=== PATIENT | female | born 1940 | race Caucasian/White ===

== ENCOUNTER 2020-09-18 10:49 | Outpatient (REF) | payer MEDICARE, SELFPAY ==
[2020-09-18 10:55] LABS: MANUAL DIFF FLAG NO
[2020-09-18 11:33] LABS: Basophils Percent Auto 0.6 % (0-2); Eosinophils Absolute Auto 0.1 X10*3/uL (0.0-0.4); Eosinophils Percent Auto 1.7 % (0-4); Hematocrit 45.5 % (37-47); Hemoglobin 14.5 g/dl (12.0-16.0); Imm Gran Abs Auto 0.01 X10*3/uL (0.00-0.03); Imm Gran Pct Auto 0.2 % (0.0-0.4); Lymphocytes Absolute Auto 2.3 X10*3/uL (1.2-4.9); Lymphocytes Percent Auto 35.2 % (20-40); Mean Corpuscular HGB Conc 31.9 g/dl (31.0-35.0); Mean Corpuscular Volume 97.4 fL (80-98); Mean Platelet Volume 11.4 fL (9.4-12.3); Monocytes Absolute Auto 0.7 X10*3/uL (0.1-1.2); Monocytes Percent Auto 10.8 % (2-11); Neutrophils Absolute Auto 3.4 X10*3/uL (2.0-8.3); Neutrophils Percent Auto 51.5 % (45-73); Platelet Count 158 X10*3/uL (160-400); Red Blood Count 4.67 X10*6/uL (4.20-5.50); Red Cell Distribution Width 13.2 % (11.0-16.0); White Blood Count 6.5 X10*3/uL (4.8-10.8)
[2020-09-18 12:10] LABS: Alanine Aminotransferase 18 U/L (0-31); Albumin Level 4.2 g/dL (3.5-5.0); Alkaline Phosphatase 59 U/L (39-117); Anion Gap 14 (12-20); Aspartate Amino Transferase 24 U/L (5-31); Bilirubin Total 0.6 mg/dL (0.0-1.0); Blood Urea Nitrogen 18 mg/dL (9-16); Calcium 9.7 mg/dL (8.4-10.2); Carbon Dioxide 26 mmol/L (22-29); Chloride 105 mmol/L (96-108); Cholesterol 183 mg/dL; Estimated Glomerular Filt Rate > 60; Glucose Fasting 92 mg/dL (60-99); HDL Cholesterol 67 mg/dL; LDL Cholesterol Calculated 85 mg/dl; Potassium 4.5 mmol/L (3.3-5.1); Sodium 140 mmol/L (135-145); Total Protein 6.9 g/dL (6.5-8.0); Triglycerides 155 mg/dL
[2020-09-18 12:36] LABS: TSH reflex Free T4 3.33 uIU/mL (0.32-4.0)
== END 2020-09-18 10:50 | disposition home or self-care (01) ==
LOC: HO.LNP 10:49
PROVIDERS: PCP Internal Medicine; Visit Provider Internal Medicine
DX: Z00.00 Encounter for general adult medical examination without abnormal findings (principal); I10 Essential (primary) hypertension; E21.3 Hyperparathyroidism, unspecified; M85.80 Other specified disorders of bone density and structure, unspecified site
CPT/HCPCS: 80053; 80061; 84443; 85025

== ENCOUNTER 2020-09-26 14:04 | Outpatient (REF) | payer MEDICARE, SELFPAY ==
[2020-09-26 14:29] LABS: Glucose Urine UA NEG (NEG); Leukocyte Esterase Urine 1+ (NEG); Nitrite Urine NEG (NEG); Specific Gravity - Urine 1.025 (1.005-1.025); Urine Blood NEG (NEG); Urine Ketones NEG (NEG); Urine Protein NEG (NEG-TRACE)
[2020-09-26 14:30] LABS: Appearance Urine HAZY; Color Urine YELLOW
[2020-09-26 14:48] LABS: Bacteria Urine 2+ /LPF; RBC Urine 0-2 /HPF (0); Squamous Epithelial Cell Urine 3+ /LPF
== END 2020-09-26 14:05 | disposition home or self-care (01) ==
LOC: HO.LNP 14:04
PROVIDERS: Visit Provider Internal Medicine
DX: Z00.00 Encounter for general adult medical examination without abnormal findings (principal); I10 Essential (primary) hypertension
CPT/HCPCS: 81001

== ENCOUNTER 2021-01-09 09:11 | Day surgery (SDC) | payer MEDICARE, SELFPAY ==
[2021-01-02 15:05] VITALS: BMI 19.1
[2021-01-09 09:49] VITALS: BP 158/76; PULSE 76; RESP 20; TEMP 36.5; O2SAT 99
[2021-01-09] MEDS: Lactated Ringers 1,000 ML 100 ML IVCONT (09:59)
--- NOTE | 2021-01-09 10:16 | P.CONAN_ITS ---
HPI - Anesthesia Eval Consult details Narrative: surveillance Colonoscopy [facility] Past Medical History Medical History Hx of breast cancer Mitral valve prolapse Cognitive capacity: AAO X3 Functional capacity: independent ambulation Family History Family history of problems with anesthesia: No Surgical History Surgical History H/O colonoscopy History of lumpectomy of left breast History of Problems with Anesthesia: No Social History Social History Patient Tobacco Use Status: Tobacco use Unknown Use of substances other than those prescribed or required for medical reasons: No Advance Directives Information Provided: No Travel History History of recent travel: No Meds Allergies Allergy/AdvReac Type Severity Reaction Status Date / Time amoxicillin [AMOXICILLIN] Allergy Unknown UNKNOWN Verified 01/09/21 09:37 Active Medications: Current Medications Generic Name Dose Route Start Last Admin Trade Name Freq PRN Reason Stop Dose Admin Lactated Ringer's 1,000 mls @ 100 mls/hr 01/09/21 07:30 01/09/21 09:59 Lr IVCONT 100 mls/hr .Q10H HUSSEIN Administration Sodium Chloride 1,000 mls @ 50 mls/hr 01/09/21 07:30 Ns IVCONT .Q20H HUSSEIN Home Medications Medication Instructions Recorded Confirmed Last Taken Type atenolol 50 mg tablet 1 tab PO DAILY 01/02/21 01/02/21 01/09/21 04:00 History calcium carbonate 500 mg calcium 500 mg PO QID 01/02/21 01/02/21 Unknown History (1,250 mg) chewable tablet cholecalciferol (vitamin D3) 50 50 mcg PO DAILY 01/02/21 01/02/21 Unknown History mcg (2,000 unit) capsule (Vitamin D3) multivitamin 1 tab PO DAILY 01/02/21 01/02/21 Unknown History Exam Exam Date and Time: January 09, 2021 1016 Height,Weight and Vital Signs: Height 5 ft Weight 44.452 kg Last Vital Signs Temp 97.7 F 01/09/21 09:49 Pulse 76 01/09/21 09:49 Resp 20 01/09/21 09:49 BP 158/76 H 01/09/21 09:49 Pulse Ox 99 01/09/21 09:49 Narrative Narrative: no loose teeth Assessment and Plan Assessment Anesthesia Assessment: Anesthesia Plan Discussed and Chart Reviewed Final Anesthetic Review Family History of Problems with Anesthesia: No History of Problems with Anesthesia: No NPO: Yes ASA Class: III Final Preanesthetic Review: No Changes in Pt Med Stat, Meds/Allgs Chart Reviewed, Consent Obtained/Reviewed and Anes Risks/Benef Reviewed Patient Risk: Intermediate Procedure Risk: Low Assessment/Block/Sedation in SS: Assess/Block/Sedation-SS Anesthetic Plan Anesthetic Plan: MAC: and Agree w/ Assess. and Plan Disposition: Standard PACU
--- NOTE | 2021-01-09 10:22 | MHC.SHP ---
Pre-Procedural Eval Section A Date of Service: 01/09/21 The patient is an INPATIENT: No Changes since office visit: No Cold of Flu in the past 2 weeks, No New Medical Problems, No Changes in Medication and No Patient answered all questions The History & Physical has been completed within 30 days and I have reviewed it.: Yes Section B Chief Complaint: Screening Allergies: Allergies Allergy/AdvReac Type Severity Reaction Status Date / Time amoxicillin [AMOXICILLIN] Allergy Unknown UNKNOWN Verified 01/09/21 09:37 Plan I have reviewed the history and physical and performed a pertinent physical examination on my patient. No changes have occurred unless specified.
--- NOTE | 2021-01-09 10:55 | P.BOP_ITS ---
Brief Operative Note Date of Service: 01/09/21 Pre-op diagnosis: screening, hx polyp Post-op diagnosis: same (colon polyps) Procedure: colonoscopy Surgeon: Gerard Bethea Anesthesia: MAC Was an Campaign Coordinator used for this Procedure?: No Estimated blood loss (mL): 5 Pathology: other (polyps) Condition: stable Disposition: PACU
[2021-01-09 10:56] VITALS: BP 85/53; PULSE 74; RESP 14; TEMP 36.2; O2SAT 97
[2021-01-09 11:11] VITALS: BP 92/57; PULSE 63; RESP 16; O2SAT 97
[2021-01-09 11:34] VITALS: BP 122/74; PULSE 67; RESP 17; TEMP 36.2; O2SAT 98
--- NOTE | 2021-01-09 16:00 | OP_ITS ---
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 PREOPERATIVE DIAGNOSIS: POSTOPERATIVE DIAGNOSIS: PROCEDURE PERFORMED: Colonoscopy to the terminal ileum with snare polypectomy. ESTIMATED BLOOD LOSS: COMPLICATIONS: ANESTHESIA: ASSISTANTS: SPECIMENS: MEDICATIONS: Monitored anesthesia care. DESCRIPTION OF PROCEDURE: History and physical performed. The risks and benefits of the procedure were explained to the patient. Informed consent was obtained. The patient was placed in left lateral decubitus position. A digital rectal exam was performed, which showed large external hemorrhoids. The Olympus pediatric video colonoscope was introduced into the rectum and advanced to the cecum without difficulty. The cecum was identified by transillumination, palpation, and identification of ileocecal valve. Examination was performed and the scope was removed. She tolerated the procedure well and was taken to recovery area in stable condition. FINDINGS: The terminal ileum was normal. In the cecum, there was a 2.5 cm polypoid area consistent with recurrence at her previous polypectomy site. This was piecemeal resected and the base was cauterized. A single polyp at 55 cm measuring approximately 6 mm was removed with a snare. No other polyps were identified. Retroflexed examination showed internal hemorrhoids. IMPRESSION: Colon polyps. RECOMMENDATION: Follow up the biopsy results. MD SAVITA Joe/DONALD / [id number] MTDD
== END 2021-01-09 12:02 | disposition home or self-care (01) ==
PROVIDERS: PCP Internal Medicine; Visit Provider Internal Medicine Gastroenterology
PROC: 0DJD8ZZ Inspection of Lower Intestinal Tract, Via Natural or Artificial Opening Endoscopic (ICD-10-PCS; CPT 45378; principal; 2021-01-09 10:20)
DX: Z12.11 Encounter for screening for malignant neoplasm of colon (principal); Z86.010 Personal history of colon polyps; D12.0 Benign neoplasm of cecum; D12.5 Benign neoplasm of sigmoid colon; K64.8 Other hemorrhoids; K64.4 Residual hemorrhoidal skin tags; Z79.899 Other long term (current) drug therapy; Z88.0 Allergy status to penicillin; Z85.3 Personal history of malignant neoplasm of breast
CPT/HCPCS: 45385; 45380; 88305

== ENCOUNTER 2021-06-27 12:36 | Emergency (ER) | payer MEDICARE, SELFPAY ==
--- NOTE | ~2021-06-27 | CT_ITS ---
EXAMINATION: CT HEAD WITHOUT CONTRAST CLINICAL INFORMATION: Fall. Head trauma. COMPARISON: Previous head CT September 2017 TECHNIQUE: Contiguous axial imaging was performed from the skull base to vertex without intravenous administration of contrast. This CT examination was performed using dose optimization techniques as appropriate, variously including the following: *Automated exposure control *Adjustment of mA and/or kV according to patient size (this includes techniques or standardized protocols for targeted exams where dose is matched to indication/reason for exam; i.e. extremities or head) *Use of iterative reconstruction technique DLP: 642 mGy-cm FINDINGS: There is no evidence of acute intracranial hemorrhage or territorial infarction. No abnormal mass effect or midline shift is seen. Choudhary to white matter differentiation is well preserved. No extra-axial fluid collections are identified. The ventricles are normal in size. There is no abnormal attenuation within the brain parenchyma. The osseous structures and soft tissues are normal. The mastoid air cells and visualized portions of the paranasal sinuses are well aerated. CT/CT head/brain wo con IMPRESSION: Unremarkable exam.
[2021-06-27 14:05] VITALS: BP 176/99; PULSE 81; RESP 19; TEMP 36.6; O2SAT 99; BMI 20.5
[2021-06-27 16:54] VITALS: BP 147/78; PULSE 81; RESP 16; TEMP 36.6; O2SAT 98
--- NOTE | 2021-06-27 17:17 | ED.HEATRA ---
HPI - Head Injury General Chief complaint: Head Injury Stated complaint: Fall/head inj Time Seen by Provider: 06/27/21 16:48 Source: patient Mode of arrival: ambulatory Limitations: no limitations History of Present Illness HPI Narrative: 81-year-old female with history of hypertension here with reports of fall with head strike. Patient tells me she was changing her pants when she lost her balance falling backwards hitting her head on the corner of the bathtub. She denies any loss of consciousness. She denies any headache, vision changes, nausea, vomiting, dizziness, gait changes. She does take 81 mg of aspirin daily. Tetanus up-to-date Related Data Home Medications Medication Instructions Recorded Confirmed atenolol 50 mg tablet 1 tab PO DAILY 01/02/21 01/02/21 calcium carbonate 500 mg calcium 500 mg PO QID 01/02/21 01/02/21 (1,250 mg) chewable tablet cholecalciferol (vitamin D3) 50 50 mcg PO DAILY 01/02/21 01/02/21 mcg (2,000 unit) capsule (Vitamin D3) multivitamin 1 tab PO DAILY 01/02/21 01/02/21 Allergies Allergy/AdvReac Type Severity Reaction Status Date / Time amoxicillin [AMOXICILLIN] Allergy Unknown UNKNOWN Verified 01/09/21 09:37 Review of Systems Review of Systems: Yes all other systems are reviewed and are negative Constitutional: Constitutional: Reports no additional constitutional complaints, Denies body ache(s), Denies chills, Denies fever(s), Denies headache(s) and Denies weakness Eyes: Eyes: Reports no additional eye complaints and Denies change in vision ENT: Reports system reviewed and no additional complaints, except as documented, Denies dizziness, Denies headache(s), Denies nasal congestion, Denies nasal discharge and Denies neck pain Cardiovascular: Cardiovascular: Reports no additional cardiovascular complaints, Denies chest pain, Denies leg edema and Denies dyspnea Respiratory: Respiratory: Reports no additional respiratory complaints, Denies cough and Denies dyspnea Gastrointestinal: Gastrointestinal: Reports no additional gastrointestinal complaints, Denies abdominal pain, Denies diarrhea, Denies nausea and Denies vomiting Genitourinary: Genitourinary: Reports no additional female genitourinary complaints and Denies urinary incontinence Musculoskeletal: Musculoskeletal: Reports no additional musculoskeletal complaints, Denies back pain, Denies arthralgias, Denies joint swelling, Denies neck pain, Denies numbness and Denies tingling Integumentary/Breasts: Skin/Breast: Reports system reviewed and no additional complaints, except as docu and Denies rash Comments: +laceration Neurologic: Reports system reviewed and no additional complaints, except as documented, Denies Abnormal speech present, Denies dizziness, Denies headache(s), Denies numbness, Denies tingling and Denies weakness PMFSH Past Medical History Attestation statement: The following information was validated with the patient. Source: old records reviewed and nursing notes reviewed Medical History Hx of breast cancer Mitral valve prolapse Surgical History H/O colonoscopy History of lumpectomy of left breast Social History Social History Patient Tobacco Use Status: Tobacco use Unknown Advance Directives: No Advance Directives Information Provided: No Physical Exam Vital Signs: Vital Signs: Last Vital Signs Temp 97.8 F 06/27/21 16:54 Pulse 81 06/27/21 16:54 Resp 16 06/27/21 16:54 BP 147/78 H 06/27/21 16:54 Pulse Ox 98 06/27/21 16:54 BMI result Body Mass Index 20.5 Const: General: cooperative, healthy appearing, comfortable and no acute distress Orientation/consciousness: patient oriented x3 Limitations: no limitations HENMT: Head: Yes normal to inspection Head images: 1. 4cm laceration. No associated bogginess, crepitus or tenderness. Bleeding is controlled Ears: hearing grossly normal bilaterally and TM's normal bilaterally General nose exam: Normal external nose present Face and sinus: Yes normal facial exam Mouth: Normal oral and palatal mucosa present Throat: Yes posterior oropharynx normal, Yes tonsils normal and Yes uvula midline Eyes: General: appearance normal, both eyes and all related structures Pupils: Equal, round and reactive pupils present Neck: Neck: Yes normal visual inspection, Yes full ROM, Yes no lymphadenopathy and Yes no meningeal signs Chest: Chest palpation & inspection: normal inspection of the chest Resp: Effort & Inspection: normal respiratory effort Auscultation: clear to auscultation bilaterally Cardio: Rate: regular rate Rhythm: regular rhythm Peripheral pulses: Peripheral pulses 2+ throughout GI: Inspection: Yes normal to inspection Palpation (GI): Soft to palpation and nontender Auscultation: normal bowel sounds Back/Spine/Pelvis: Thoracic/Lumbar Spine: thoracic and lumbar spine normal to inspection Skin: General skin exam: no rashes or lesions noted Neuro: General: patient oriented x3, no meningeal signs, no focal motor deficits and normal sensation to monofilament Cranial nerves: Yes CN's II-XII intact bilaterally, Yes Equal, round and reactive pupils present, Yes Bilaterally intact EOM present, Yes Nystagmus not present, Yes Normal facial strength present and Yes Midline tongue present Cognition (Neuro): normal cognition Speech: No Abnormal speech present Gait exam (Neuro): Normal gait present Motor exam (neuro): 5/5 motor strength present throughout Sensory Exam: Normal double simultaneous stimulation for sensation Extrem: General: Yes normal to inspection Course Course Course Narrative: 81-year-old female here after a fall that was mechanical in nature with the head strike and laceration to the posterior head. No complaints other than laceration. Normal neurological exam. She is only on aspirin daily. Will check CT head and perform wound repair. 1715-CT head is negative for any intracranial abnormality. See procedure note for laceration repair. Reviewed worrisome signs and symptoms of when to return to the emergency department with the patient. Comfortable discharge home. MDM - Head Injury Medical Records Attestation: I reviewed the patient's medical records. Lab Data Attestation: I reviewed the patient's lab results. Imaging Data CT scan - head: Attestation: I personally reviewed and interpreted this imaging study as follows: Radiologist's impression: [address] [address] [address] Scan Report Signed Patient: Bonny Lim MR#: [id number] : 1940 Acct:[id number] Age/Sex: 81 / F ADM Date: 06/27/21 Loc: .ED Attending Dr: Ordering Physician: Judie Guadalupe Date of Service: 06/27/21 Procedure(s): CT head/brain wo con Accession Number(s): [id number] cc: Judie Guadalupe~ EXAMINATION: CT HEAD WITHOUT CONTRAST CLINICAL INFORMATION: Fall. Head trauma.? COMPARISON: Previous head CT September 2017 TECHNIQUE: Contiguous axial imaging was performed from the skull base to vertex without intravenous administration of contrast. This CT examination was performed using dose optimization techniques as appropriate, variously including the following: *Automated exposure control *Adjustment of mA and/or kV according to patient size (this includes techniques or standardized protocols for targeted exams where dose is matched to indication/reason for exam; i.e. extremities or head) *Use of iterative reconstruction technique DLP: 642 mGy-cm FINDINGS: There is no evidence of acute intracranial hemorrhage or territorial infarction. No abnormal mass effect or midline shift is seen. Choudhary to white matter differentiation is well preserved. No extra-axial fluid collections are identified. The ventricles are normal in size. There is no abnormal attenuation within the brain parenchyma. The osseous structures and soft tissues are normal. The mastoid air cells and visualized portions of the paranasal sinuses are well aerated. ? CT/CT head/brain wo con IMPRESSION: Unremarkable exam. Procedures Laceration Laceration 1: Site: scalp Side (If applicable): right Size (cm): 4 Description: linear Depth: simple, single layer Pre-repair: wound explored and irrigated extensively Skin layer closed with: other (Norris) Number of sutures: 4 Discharge Plan Discharge Clinical Impression: Closed head injury, Laceration of head Patient Disposition: Home, Self-Care Instructions: Head Injury (ED), Head Laceration (ED) Additional Instructions: You have for norris. These need to be removed in 10-14 days Wash hair normally Return for change in behavior, headache, vomiting Prescriptions: No Action multivitamin Tablet 1 tab PO DAILY RF: 0 calcium carbonate 500 mg calcium (1,250 mg) Tablet,Chewable 500 mg PO QID RF: 0 atenolol 50 mg tablet 1 tab PO DAILY RF: 0 cholecalciferol (vitamin D3) [Vitamin D3] 50 mcg (2,000 unit) Capsule 50 mcg PO DAILY RF: 0 Referrals: Clive Hyatt MD [Primary Care Provider] - 2 days Interventions: ED Discharge Assessment Last Done: 06/27/21 17:19
== END 2021-06-27 17:20 | disposition home or self-care (01) ==
LOC: HO.ED 17:06
PROVIDERS: Emergency Provider Emergency Medicine Emergency Medical Services; PCP Internal Medicine
DX: S01.01XA Laceration without foreign body of scalp, initial encounter (principal); G44.309 Post-traumatic headache, unspecified, not intractable; W01.10XA Fall on same level from slipping, tripping and stumbling with subsequent striking against unspecified object, initial encounter; Y93.9 Activity, unspecified; Y92.9 Unspecified place or not applicable; Y99.9 Unspecified external cause status; Z79.899 Other long term (current) drug therapy
CPT/HCPCS: 12002; 70450; 99284

== ENCOUNTER 2021-09-07 06:24 | Day surgery (SDC) | payer MEDICARE, SELFPAY ==
[2021-08-31 15:58] VITALS: BMI 19.7
--- NOTE | 2021-09-06 09:48 | HO.ANESPROP2 ---
Documented by User: Marla Brody NP 09/06/21 09:48 HPI - Anesthesia Eval Consult details Narrative: 81yo F for Colonoscopy s/p colo 01/2021 with [facility] PMFSH Past Medical History Medical History Hx of breast cancer Mitral valve prolapse Family History Family history of problems with anesthesia: No Surgical History Surgical History H/O colonoscopy History of lumpectomy of left breast History of Problems with Anesthesia: No Social History Social History Patient Tobacco Use Status: Never used Tobacco Second Hand Smoke Exposure: No Use of substances other than those prescribed or required for medical reasons: No Are you DNR?: No Advance Directives: No Advance Directives Information Provided: Yes Advance Directives on File: No Meds Allergies Allergy/AdvReac Type Severity Reaction Status Date / Time amoxicillin [AMOXICILLIN] Allergy Unknown UNKNOWN Verified 01/09/21 09:37 Home Medications Medication Instructions Recorded Confirmed Last Taken Type atenolol 50 mg tablet 1 tab PO DAILY 01/02/21 01/02/21 09/07/21 History calcium carbonate 500 mg calcium 500 mg PO QID 01/02/21 01/02/21 Unknown History (1,250 mg) chewable tablet cholecalciferol (vitamin D3) 50 50 mcg PO DAILY 01/02/21 01/02/21 Unknown History mcg (2,000 unit) capsule (Vitamin D3) multivitamin 1 tab PO DAILY 01/02/21 01/02/21 Unknown History Exam Exam Date and Time: September 06, 2021 0948 Height,Weight and Vital Signs: Height 5 ft Weight 45.813 kg Assessment and Plan Assessment Anesthesia Assessment: Chart Reviewed Final Anesthetic Review Family History of Problems with Anesthesia: No History of Problems with Anesthesia: No Documented by User: Shefali Ron MD 09/07/21 07:12 PMF Past Medical History Medical History Hx of breast cancer Mitral valve prolapse Functional capacity: independent ambulation Patient : No Surgical History Surgical History H/O colonoscopy History of lumpectomy of left breast Social History Social History Patient Tobacco Use Status: Never used Tobacco Second Hand Smoke Exposure: No Use of substances other than those prescribed or required for medical reasons: No Are you DNR?: No Advance Directives: No Advance Directives Information Provided: Yes Advance Directives on File: No Meds Allergies Allergy/AdvReac Type Severity Reaction Status Date / Time amoxicillin [AMOXICILLIN] Allergy Unknown UNKNOWN Verified 01/09/21 09:37 Home Medications Medication Instructions Recorded Confirmed Last Taken Type atenolol 50 mg tablet 1 tab PO DAILY 01/02/21 01/02/21 09/07/21 History calcium carbonate 500 mg calcium 500 mg PO QID 01/02/21 01/02/21 Unknown History (1,250 mg) chewable tablet cholecalciferol (vitamin D3) 50 50 mcg PO DAILY 01/02/21 01/02/21 Unknown History mcg (2,000 unit) capsule (Vitamin D3) multivitamin 1 tab PO DAILY 01/02/21 01/02/21 Unknown History Exam Airway Mallampati Class: II TM Dist: >3cm Neck ROM: Full Heart: RRR Lungs: CTA Assessment and Plan Final Anesthetic Review NPO: Yes ASA Class: II Final Preanesthetic Review: No Changes in Pt Med Stat, Meds/Allgs Chart Reviewed, Consent Obtained/Reviewed and Anes Risks/Benef Reviewed Patient Risk: Low Procedure Risk: Low Anesthetic Plan Anesthetic Plan: MAC: Disposition: Standard PACU
[2021-09-07 06:53] VITALS: BP 130/72; PULSE 75; RESP 16; TEMP 36.5; O2SAT 99
[2021-09-07] MEDS: Lactated Ringers 1,000 ML 100 ML IVCONT (07:01)
--- NOTE | 2021-09-07 07:27 | P.HPSUR_ITS ---
Pre-Procedural Eval Section A Date of Service: 09/07/21 Section B Chief Complaint: benign neoplasm of colon Details of Present Illness: see h&p no changes Relevant Family History (Specify if Yes): No Relevant Social History: None Present Medications: see Short Stay Collaborative assessment Medical History: No relevant PMH History of Previous Operations: No relevant previous surgery Allergies: Allergies Allergy/AdvReac Type Severity Reaction Status Date / Time amoxicillin [AMOXICILLIN] Allergy Unknown UNKNOWN Verified 01/09/21 09:37 Review of Systems Sugical H&P ROS: Negative: Constitution, Cardiovascular, Respiratory, Neurologi mary, Psychiatric, Hem-Onc, Allergic/Immunologic, Gastrointestinal, Genitourinary, Musculoskeletal, Integumentary, Endocrine and Eyes/Ears/Nose/Throat Exam Surgical H&P Exam: Normal: HEENT, Normal: Heart, Normal: Lungs, Normal: Extremities, Normal: Abdomen, Normal: Skin and Normal: Neurological Plan Diagnosis/Plan: Unchanged I have reviewed the history and physical and performed a pertinent physical examination on my patient. No changes have occurred unless specified.
--- NOTE | 2021-09-07 08:10 | PM.OP ---
Brief Operative Note Date of Service: 09/07/21 Pre-op diagnosis: colon polyp Post-op diagnosis: same Procedure: colonoscopy Surgeon: Gerard Bethea Anesthesia: MAC Was an Strategic Marketing Specialist used for this Procedure?: No Estimated blood loss (mL): 2 Pathology: other (polyps x3) Condition: stable Disposition: PACU
[2021-09-07 08:11] VITALS: BP 84/48; PULSE 65; RESP 20; TEMP 36.3; O2SAT 100
[2021-09-07 08:15] VITALS: BP 84/48; PULSE 61; RESP 20; O2SAT 100
[2021-09-07 08:25] VITALS: BP 94/54; PULSE 55; RESP 20; O2SAT 100
[2021-09-07 08:40] VITALS: BP 105/63; PULSE 68; RESP 20; O2SAT 100
[2021-09-07 08:53] VITALS: BP 131/69; PULSE 66; RESP 16; TEMP 36.3; O2SAT 100
--- NOTE | 2021-09-07 10:30 | HO.POSTANES ---
Post Anesthesia Evaluation Post Anesthesia Evaluation Vital Signs: Vital Signs Temp Pulse Resp BP Pulse Ox 09/07/21 08:53 97.4 F 66 16 131/69 100 09/07/21 08:40 68 20 105/63 100 09/07/21 08:25 55 20 94/54 L 100 09/07/21 08:15 61 20 84/48 L 100 09/07/21 08:11 97.4 F 65 20 84/48 L 100 09/07/21 06:53 97.7 F 75 16 130/72 99 Mental Status: Awake Pain Control: Satisfactory Nausea/Vomiting: None Hydration: Adequate Anesthesia-Related Issues: No Anes. Related Issues Comments: Pt. was c/o pain at the neck. She needed jaw lift because of obstruction / secundary to her severe sleep apnea/ .
--- NOTE | 2021-09-07 11:58 | OP_ITS ---
SURGEON: Gerard Bethea MD INDICATIONS: History of a large recurrent cecal adenoma. PREOPERATIVE DIAGNOSIS: POSTOPERATIVE DIAGNOSIS: PROCEDURE PERFORMED: Colonoscopy to the terminal ileum with biopsy and snare polypectomy. ESTIMATED BLOOD LOSS: COMPLICATIONS: ANESTHESIA: ASSISTANTS: SPECIMENS: MEDICATIONS: Monitored anesthesia care. DESCRIPTION OF PROCEDURE: History and physical were performed. The risks and benefits of the procedure were explained to the patient. Informed consent was obtained. The patient was placed in left lateral decubitus position. A digital rectal exam was performed and was found to be normal. The Olympus pediatric video colonoscope was introduced into the rectum and advanced to the cecum without difficulty. The cecum was identified by transillumination, palpation, and identification of ileocecal valve. Examination was performed. The scope was removed. She tolerated the procedure well and was taken to recovery area in stable condition. FINDINGS: The terminal ileum was examined and appeared normal. The visualized colonic mucosa was normal. The quality of the prep was excellent. The cecum was carefully examined and there was no evidence of recurrent adenoma, but at the site of the prior polypectomy, there was some scar tissue identified. A total of 3 polyps were removed. The 1st was located at 65 cm measuring less than 5 mm and was removed with biopsy forceps. The 2nd was located at 50 cm and was removed with a snare. The 3rd was located at 40 cm measuring approximately 6 mm was removed with a snare. No other polyps were identified. Retroflexed examination showed large internal hemorrhoids. IMPRESSION: Colon polyps. RECOMMENDATION: Follow up the biopsy results. MD SAVITA Joe/BRIANL / [id number]
== END 2021-09-07 09:25 | disposition home or self-care (01) ==
PROVIDERS: PCP Internal Medicine; Visit Provider Internal Medicine Gastroenterology
PROC: 0DJD8ZZ Inspection of Lower Intestinal Tract, Via Natural or Artificial Opening Endoscopic (ICD-10-PCS; CPT 45378; principal; 2021-09-07 07:30)
DX: D12.6 Benign neoplasm of colon, unspecified (principal); K63.5 Polyp of colon; Z86.010 Personal history of colon polyps
CPT/HCPCS: 45385; 45380; 88305

== ENCOUNTER 2021-09-25 10:36 | Outpatient (REF) | payer MEDICARE, SELFPAY ==
[2021-09-25 10:40] LABS: MANUAL DIFF FLAG NO
[2021-09-25 10:44] LABS: Basophils Percent Auto 0.5 % (0-2); Eosinophils Absolute Auto 0.1 X10*3/uL (0.0-0.4); Eosinophils Percent Auto 0.9 % (0-4); Hematocrit 45.8 % (37.0-47.0); Hemoglobin 14.7 g/dl (12.0-16.0); Imm Gran Abs Auto 0.02 X10*3/uL (0.00-0.03); Imm Gran Pct Auto 0.4 % (0.0-0.4); Lymphocytes Absolute Auto 1.3 X10*3/uL (1.2-4.9); Lymphocytes Percent Auto 22.7 % (20-40); Mean Corpuscular HGB Conc 32.1 g/dl (31.0-35.0); Mean Corpuscular Hemoglobin 31.2 pg (27.0-33.0); Mean Corpuscular Volume 97.2 fL (80.0-98.0); Mean Platelet Volume 11.4 fL (9.4-12.3); Monocytes Absolute Auto 0.9 X10*3/uL (0.1-1.2); Monocytes Percent Auto 16.1 % (2-11); Neutrophils Absolute Auto 3.4 x10*3/uL (2.0-8.3); Neutrophils Percent Auto 59.4 % (45-73); Platelet Count 193 X10*3/uL (160-400); Red Blood Count 4.71 X10*6/uL (4.20-5.50); Red Cell Distribution Width 12.8 % (11.0-16.0); White Blood Count 5.6 X10*3/uL (4.8-10.8)
[2021-09-25 10:54] LABS: Alanine Aminotransferase 17 U/L (0-31); Albumin Level 3.9 g/dL (3.5-5.0); Alkaline Phosphatase 68 U/L (39-117); Anion Gap 12 (12-20); Aspartate Amino Transferase 22 U/L (5-31); Bilirubin Total 0.6 mg/dL (0.0-1.0); Blood Urea Nitrogen 17 mg/dL (9-16); Calcium 9.8 mg/dL (8.4-10.2); Carbon Dioxide 26 mmol/L (22-29); Chloride 108 mmol/L (96-108); Cholesterol 170 mg/dL; Estimated Glomerular Filt Rate > 60; Glucose Fasting 95 mg/dL (60-99); HDL Cholesterol 58 mg/dL; LDL Cholesterol Calculated 91 mg/dl; Potassium 4.3 mmol/L (3.3-5.1); Sodium 142 mmol/L (135-145); Total Protein 6.6 g/dL (6.5-8.0); Triglycerides 107 mg/dL
[2021-09-25 11:15] LABS: TSH reflex Free T4 2.47 uIU/mL (0.32-4.0)
== END 2021-09-25 10:37 | disposition home or self-care (01) ==
LOC: HO.LNP 10:36
PROVIDERS: PCP Internal Medicine; Visit Provider Internal Medicine
DX: Z00.00 Encounter for general adult medical examination without abnormal findings (principal); E21.3 Hyperparathyroidism, unspecified; I10 Essential (primary) hypertension
CPT/HCPCS: 80053; 80061; 84443; 85025

== ENCOUNTER 2021-10-02 10:30 | Outpatient (REF) | payer MEDICARE, SELFPAY ==
[2021-10-02 11:58] LABS: Appearance Urine CLEAR; Color Urine YELLOW; Glucose Urine UA NEG (NEG); Leukocyte Esterase Urine 1+ (NEG); Nitrite Urine NEG (NEG); Urine Blood NEG (NEG); Urine Ketones NEG (NEG); Urine Protein NEG (NEG-TRACE)
[2021-10-02 13:28] LABS: Bacteria Urine 1+ /LPF; Squamous Epithelial Cell Urine TRACE /LPF
[2021-10-02 13:29] LABS: RBC Urine 0 /HPF (0); WBC Urine 0-2 /HPF (0-4)
== END 2021-10-02 10:31 | disposition home or self-care (01) ==
LOC: HO.LNP 10:30
PROVIDERS: Visit Provider Internal Medicine
DX: I10 Essential (primary) hypertension (principal)
CPT/HCPCS: 81001; 81003

== ENCOUNTER 2021-10-12 09:08 | Outpatient (REF) | payer MEDICARE, SELFPAY ==
--- NOTE | ~2021-10-12 | MM_ITS ---
EXAMINATION: BONE DENSITOMETRY CLINICAL INDICATION: Osteopenia. COMPARISON: Previous BD dated 04/06/2019 and baseline BD dated 04/11/2009. TECHNIQUE: Using a [employer] DXA System (software version: 13.1) manufactured by [employer], dual-energy x-ray absorptiometry was performed of the lumbar spine and left hip. The images are of good technical quality. Summary results are attached. FINDINGS: AP SPINE L1-L4 (excluding L3): The data of L1-L4 has been changed to exclude the L3 vertebral body, because degenerative sclerosis at this level may cause overestimation of lumbar spine density. Current: BMD 1.001 g/cm2, Z-score 1.1, T-score -1.4, osteopenia, 7.4% decrease from previous, 4.9% decrease from baseline (<5% change is not significant). Prior: BMD 1.081 g/cm2. Baseline: BMD 1.053 g/cm2. LEFT FEMUR, NECK: Current: BMD 0.784 g/cm2, Z-score 0.7, T-score -1.8, osteopenia. Prior: BMD 0.821 g/cm2. Baseline: BMD 0.871 g/cm2. LEFT FEMUR, TOTAL: Current: BMD 0.718 g/cm2, Z-score 0.1, T-score -2.3, osteopenia, 6.3% decrease from previous, 19.1% decrease from baseline (<5% change is not significant). Prior: BMD 0.766 g/cm2. Baseline: BMD 0.887 g/cm2. IDENTIFIED RISK FACTORS: Early menopause, secondary osteoporosis. HISTORY OF FRACTURE: None listed. MEDICATIONS: Calcium supplements or multivitamin, vitamin D. MM/XR DEXA axial skeleton IMPRESSION: 1. DIAGNOSIS: Osteopenia based on the lowest T-score value of -2.3 in the total femur applying World Health Organization criteria. 2. 10-YEAR FRACTURE RISK PREDICTION, FRAX: Major osteoporotic fracture (clinical spine, forearm, hip or shoulder) 12.7%. Hip fracture 3.7%. 3. Treatment Recommendations: NOF guidelines recommend consideration for treatment in postmenopausal women and men age 50 and older presenting with the following: -A hip or vertebral (clinical or morphometric) fracture. -T-score less than or equal to -2.5 at the femoral neck or spine after appropriate evaluation to exclude secondary causes. -Low bone mass at the hip or spine and a 10-year fracture probability by FRAX of greater than or equal to 3% for hip fracture or greater than or equal to 20% for major osteoporotic fracture based on the [place] adapted WHO algorithm. 4. Other Recommendations: All treatment decisions require clinical judgment and consideration of individual patient factors, including patient preferences, comorbidities, previous drug use, risk factors not captured in the FRAX model (e.g. frailty, falls, vitamin D deficiency, increased bone turnover, interval significant decline in bone density) and possible under or overestimation of fracture risk by FRAX. Additional medical evaluation for secondary cause of low bone mineral density may be appropriate. FUTURE SCAN RECOMMENDATION: People with diagnosed cases of osteoporosis or at high risk for fracture should have regular bone mineral density tests. For patients eligible for Medicare, routine testing is allowed once every 2 years. The testing frequency can be increased to one year for patients who have rapidly progressing disease, those who are receiving or discontinuing medical therapy to restore bone mass, or have additional risk factors.
== END 2021-10-12 09:09 | disposition home or self-care (01) ==
LOC: HO.MAMMO 09:08
PROVIDERS: PCP Internal Medicine; Visit Provider Internal Medicine
DX: Z13.820 Encounter for screening for osteoporosis (principal); M85.80 Other specified disorders of bone density and structure, unspecified site; Z78.0 Asymptomatic menopausal state
CPT/HCPCS: 77080

== ENCOUNTER → 2021-11-13 07:45 | Outpatient (BNVA) | payer MEDICARE, SELFPAY | PROVIDERS: PCP Internal Medicine; Visit Provider Obstetrics & Gynecology | DX: N81.4 Uterovaginal prolapse, unspecified (principal) | CPT/HCPCS: 99202 ==

== ENCOUNTER 2022-03-26 11:37 | Outpatient (REF) | payer MEDICARE, SELFPAY ==
[2022-03-26 11:39] LABS: MANUAL DIFF FLAG NO
[2022-03-26 12:05] LABS: Basophils Absolute Auto 0.1 X10*3/uL (0.0-0.2); Eosinophils Absolute Auto 0.1 X10*3/uL (0.0-0.4); Eosinophils Percent Auto 1.9 % (0-4); Hematocrit 43.5 % (37.0-47.0); Hemoglobin 14.3 g/dl (12.0-16.0); Imm Gran Abs Auto 0.02 X10*3/uL (0.00-0.03); Imm Gran Pct Auto 0.3 % (0.0-0.4); Lymphocytes Absolute Auto 1.9 X10*3/uL (1.2-4.9); Lymphocytes Percent Auto 30.3 % (20-40); Mean Corpuscular HGB Conc 32.9 g/dl (31.0-35.0); Mean Corpuscular Hemoglobin 31.4 pg (27.0-33.0); Mean Corpuscular Volume 95.4 fL (80.0-98.0); Mean Platelet Volume 11.4 fL (9.4-12.3); Monocytes Absolute Auto 0.7 X10*3/uL (0.1-1.2); Monocytes Percent Auto 10.8 % (2-11); Neutrophils Absolute Auto 3.5 x10*3/uL (2.0-8.3); Neutrophils Percent Auto 55.7 % (45-73); Platelet Count 208 X10*3/uL (160-400); Red Blood Count 4.56 X10*6/uL (4.20-5.50); White Blood Count 6.3 X10*3/uL (4.8-10.8)
== END 2022-03-26 11:38 | disposition home or self-care (01) ==
LOC: HO.LNP 11:37
PROVIDERS: Visit Provider Internal Medicine
DX: D72.821 Monocytosis (symptomatic) (principal)
CPT/HCPCS: 85025

== ENCOUNTER 2022-06-07 13:57 | Outpatient (REF) | payer MEDICARE, SELFPAY ==
--- NOTE | ~2022-06-07 | US_ITS ---
EXAMINATION: US VENOUS ULTRASOUND WITH DOPPLER LOWER EXTREMITY, BILATERAL CLINICAL INFORMATION: Superficial thrombophlebitis COMPARISON: None TECHNIQUE: Ultrasound of the deep veins is performed from the hip to the calf with compression sonography and color and pulse Doppler assessment. Spectral analysis with color-flow imaging is performed. FINDINGS: RIGHT: There is normal venous compression and respiratory variation and augmented flow. The visualized common femoral vein, superficial femoral vein, profunda femoral vein, popliteal vein, and the trifurcation region shows no evidence of deep venous thrombosis. There is no significant popliteal fossa cyst. LEFT: There is normal venous compression and respiratory variation and augmented flow. The visualized common femoral vein, superficial femoral vein, profunda femoral vein, popliteal vein, and the trifurcation region shows no evidence of deep venous thrombosis. There is no significant popliteal fossa cyst. US/US venous duplex LE BI IMPRESSION: No DVT demonstrated in the bilateral lower extremity.
== END 2022-06-07 13:58 | disposition home or self-care (01) ==
LOC: HO.US 13:57
PROVIDERS: PCP Internal Medicine; Visit Provider Internal Medicine
DX: I80.9 Phlebitis and thrombophlebitis of unspecified site (principal)
CPT/HCPCS: 93970

== ENCOUNTER 2022-09-26 10:38 | Outpatient (REF) | payer MEDICARE, SELFPAY ==
[2022-09-26 10:42] LABS: MANUAL DIFF FLAG NO
[2022-09-26 10:56] LABS: Basophils Absolute Auto 0.1 X10*3/uL (0.0-0.2); Basophils Percent Auto 0.9 % (0-2); Eosinophils Absolute Auto 0.1 X10*3/uL (0.0-0.4); Hematocrit 46.2 % (37.0-47.0); Hemoglobin 15.1 g/dl (12.0-16.0); Imm Gran Abs Auto 0.02 X10*3/uL (0.00-0.03); Imm Gran Pct Auto 0.4 % (0.0-0.4); Lymphocytes Absolute Auto 1.8 X10*3/uL (1.2-4.9); Lymphocytes Percent Auto 32.8 % (20-40); Mean Corpuscular HGB Conc 32.7 g/dl (31.0-35.0); Mean Corpuscular Hemoglobin 31.3 pg (27.0-33.0); Mean Corpuscular Volume 95.9 fL (80.0-98.0); Monocytes Absolute Auto 0.5 X10*3/uL (0.1-1.2); Monocytes Percent Auto 9.7 % (2-11); Neutrophils Percent Auto 54.2 % (45-73); Platelet Count 196 X10*3/uL (160-400); Red Blood Count 4.82 X10*6/uL (4.20-5.50); Red Cell Distribution Width 12.9 % (11.0-16.0); White Blood Count 5.5 X10*3/uL (4.8-10.8)
[2022-09-26 11:10] LABS: Alanine Aminotransferase 18 U/L (0-31); Albumin Level 4.1 g/dL (3.5-5.0); Alkaline Phosphatase 62 U/L (39-117); Anion Gap 15 (12-20); Aspartate Amino Transferase 21 U/L (5-31); Bilirubin Total 0.9 mg/dL (0.0-1.0); Blood Urea Nitrogen 14 mg/dL (9-16); Calcium 9.9 mg/dL (8.4-10.2); Carbon Dioxide 26 mmol/L (22-29); Chloride 107 mmol/L (96-108); Cholesterol 194 mg/dL; Estimated Glomerular Filt Rate > 60; Glucose Fasting 94 mg/dL (60-99); HDL Cholesterol 66 mg/dL; LDL Cholesterol Calculated 108 mg/dl; Potassium 4.6 mmol/L (3.3-5.1); Sodium 143 mmol/L (135-145); Total Protein 6.6 g/dL (6.5-8.0); Triglycerides 102 mg/dL
[2022-09-26 11:23] LABS: Appearance Urine Clear; Color Urine Yellow; Glucose Urine UA Negative (Negative); Leukocyte Esterase Urine Trace (Negative); Nitrite Urine Negative (Negative); Specific Gravity - Urine 1.015 (1.005-1.025); UMIC TRIGGER UACC YES; Urine Blood Negative (Negative); Urine Ketones Negative (Negative); Urine Protein Negative (Neg-Trace)
[2022-09-26 11:29] LABS: Bacteria Urine 4+ (None Seen); Hyaline Casts Urine 0-2 /LPF (0-2); RBC Urine 0-2 /HPF (0-2); Squamous Epithelial Cell Urine 0-2 /HPF (0-2); WBC Urine 0-5 /HPF (0-5)
== END 2022-09-26 10:39 | disposition home or self-care (01) ==
LOC: HO.LNP 10:38
PROVIDERS: Visit Provider Internal Medicine
DX: Z00.00 Encounter for general adult medical examination without abnormal findings (principal); E21.3 Hyperparathyroidism, unspecified; I10 Essential (primary) hypertension; D72.821 Monocytosis (symptomatic)
CPT/HCPCS: 80053; 80061; 81001; 85025

== ENCOUNTER 2022-12-13 18:23 | Emergency (ER) | payer MEDICARE, SELFPAY ==
--- NOTE | 2022-12-13 18:46 | ED_ITS ---
HPI - General Adult General Chief complaint: Fall Stated complaint: Fall Time Seen by Provider: 12/13/22 21:02 Source: patient and family () History of Present Illness HPI narrative: 82-year-old female who presents with her at the request of the urgent care that evaluated her earlier today and diagnosed her with a humeral fracture. She denies any numbness/tingling/weakness in the distal extremity, she denies any pain at this time. Related Data Home Medications Medication Instructions Recorded Confirmed atenolol 50 mg tablet 1 tab PO DAILY 01/02/21 01/02/21 calcium carbonate 500 mg calcium 500 mg PO QID 01/02/21 01/02/21 (1,250 mg) chewable tablet cholecalciferol (vitamin D3) 50 50 mcg PO DAILY 01/02/21 01/02/21 mcg (2,000 unit) capsule (Vitamin D3) multivitamin 1 tab PO DAILY 01/02/21 01/02/21 Allergies Allergy/AdvReac Type Severity Reaction Status Date / Time amoxicillin [AMOXICILLIN] Allergy Unknown UNKNOWN Verified 12/13/22 18:46 Review of Systems Review of Systems: Pertinent positives and negatives as stated in HPI [facility] Past Medical History Source: nursing notes reviewed Medical History Hx of breast cancer Mitral valve prolapse Surgical History H/O colonoscopy History of lumpectomy of left breast Social History Social History Patient Tobacco Use Status: Never used Tobacco Smoked in Last 30 Days: No Second Hand Smoke Exposure: No Use of substances other than those prescribed or required for medical reasons: No Advance Directives: No Advance Directives Information Provided: Yes Physical Exam ED Vital Signs: Vital Signs - 24 hr 12/13/22 18:47 12/13/22 21:06 12/13/22 21:09 Temperature 97.7 F 98.2 F 98.2 F Pulse Rate 75 72 72 Respiratory Rate 18 16 14 Blood Pressure 123/64 136/68 136/68 Pulse Oximetry 98 99 99 Oxygen Delivery Method Room Air Room Air BMI result Body Mass Index 21.5 VITAL SIGNS: Reviewed. GENERAL: Well developed, well nourished, in no acute distress. HEAD: Normocephalic/atraumatic EYES: PERRLA, EOMI EARS: Ext canals without abnormality NOSE: Nares patent bilateral OROPHARYNX: no oral lesions noted, posterior pharynx clear NECK: Supple, no adenopathy LUNGS: Normal breath sounds. No adventitious sounds or accessory muscle use. SpO2<99> CARDIOVASCULAR: Regular rate and rhythm without noted murmurs ABDOMEN: Soft, non-tender, non-distended with bowel sounds. MUSCULOSKELETAL: No tenderness, deformities, or effusions noted on gross inspection. EXTREMITIES: No cyanosis, clubbing or edema; RIGHT SHOULDER: There are no step- offs there is a mild area of swelling over the anterior aspect, no tenderness to palpation, full range of motion at the elbow and neurovascular is intact distal.. SKIN: Inspection of the skin reveals no rashes NEUROLOGIC: Alert and oriented x 4. Strength and sensation to light touch were grossly intact x 4. Course Course Course Narrative: This is an RME: Additional HPI, ROS, PE not included below will be deferred to primary provider. Patient is an 82 year old female with a history of cystocele and hypertension presents post fall with right sided arm pain. Patient is unclear on how she fell. Patient denies head trauma. Plan: imaging, labs Medical Decision Making Medical Decision Making MDM Narrative: 82-year-old female who presents after a fall earlier today in a previous evaluation at urgent care. The x-ray seems to be consistent with the discharge paperwork that was received by the patient at the urgent care. She is appropriately in a sling and will be encouraged to follow-up with orthopedics next week. I did review the lab work that was ordered and hematologic indices do not indicate any leukocytosis or left shift, neither does that suggest any anemia. Chemistry indices are grossly within normal limits. Right shoulder x-ray demonstrates fracture. Otherwise, patient is placed in a sling that fits her more appropriately and is discharged home in stable condition. Differential Diagnosis Please see the discussion above Lab Data Please see the discussion above 12/13/22 19:34 12/13/22 19:34 Labs: Lab Results 12/13/22 12/13/22 12/13/22 Range/Units 19:34 19:34 19:34 WBC 9.4 (4.8-10.8) X10*3/uL RBC 4.18 L (4.20-5.50) X10*6/uL Hgb 13.2 (12.0-16.0) g/dl Hct 40.0 (37.0-47.0) % MCV 95.7 (80.0-98.0) fL MCH 31.6 (27.0-33.0) pg MCHC 33.0 (31.0-35.0) g/dl RDW 12.9 (11.0-16.0) % Plt Count 175 (160-400) X10*3/uL MPV 10.2 (9.4-12.3) fL Immature Gran % (Auto) 0.4 (0.0-0.4) % Neut % (Auto) 59.1 (45-73) % Lymph % (Auto) 26.7 (20-40) % Villalba % (Auto) 12.7 H (2-11) % Eos % (Auto) 0.6 (0-4) % Baso % (Auto) 0.5 (0-2) % Lymph # (Auto) 2.5 (1.2-4.9) X10*3/uL Villalba # (Auto) 1.2 (0.1-1.2) X10*3/uL Eos # (Auto) 0.1 (0.0-0.4) X10*3/uL Baso # (Auto) 0.1 (0.0-0.2) X10*3/uL Abs Immat Gran (auto) 0.04 H (0.00-0.03) X10*3/uL Absolute Neuts (auto) 5.5 (2.0-8.3) x10*3/uL Absolute Nucleated RBC 0.000 (0.0-0.012) X10*3/uL Nucleated RBC % (auto) 0.0 (0.0-0.2) /100WBC Sodium 140 (135-145) mmol/L Potassium 3.8 (3.3-5.1) mmol/L Chloride 106 (96-108) mmol/L Carbon Dioxide 27 (22-29) mmol/L Anion Gap 11 L (12-20) BUN 19 H (9-16) mg/dL Creatinine 0.78 (0.5-1.4) mg/dL Estim Creat Clear Calc 41.3 Estimated GFR > 60 Random Glucose 95 (60-115) mg/dL Calcium 10.2 (8.4-10.2) mg/dL Magnesium 2.1 (1.6-2.6) mg/dL Total Bilirubin 0.6 (0.0-1.0) mg/dL AST 20 (5-31) U/L ALT 15 (0-31) U/L Alkaline Phosphatase 60 (39-117) U/L Troponin I High Sens < 2.7 (<3.5-17.0) ng/L Total Protein 6.4 L (6.5-8.0) g/dL Albumin 3.7 (3.5-5.0) g/dL Independent Interpretation I performed an independent interpretation of an: EKG Interpretation: Normal sinus rhythm, HR-70, no STEMI, SC/QRS/QTC is within normal limits. Radiology Impression Radiologist Impression: There is a humeral fracture, otherwise my interpretation is in agreement with radiology's impression. External Record Review External record reviewed: Outpatient record and Prior outpatient labs Chronic Conditions Patient?s care impacted by: Hypertension Discharge Plan Discharge Clinical Impression: Closed fracture of surgical neck of right humerus Patient Disposition: Home, Self-Care Instructions: Arm Fracture in Adults (ED), How to Use a Sling (ED) Additional Instructions: 1. Resume all home medications as prescribed. I recommend that you use [id number] Tylenol/ibuprofen as needed for pain control. 2. Please review the information above for how to use a sling. Please follow-up with orthopedics at the early part of next week. A very mildly displaced fracture is seen of the surgical neck of the right humerus. In addition, there is a mildly displaced fracture fragment of the greater tuberosity of the proximal right humerus. Return to the ER for any worsening symptoms. Prescriptions: No Action multivitamin Tablet 1 tab PO DAILY calcium carbonate 500 mg calcium (1,250 mg) Tablet,Chewable 500 mg PO QID atenolol 50 mg tablet 1 tab PO DAILY cholecalciferol (vitamin D3) [Vitamin D3] 50 mcg (2,000 unit) Capsule 50 mcg PO DAILY Referrals: Reji Hyatt MD [Primary Care Provider] -
[2022-12-13 18:47] VITALS: BP 123/64; PULSE 75; RESP 18; TEMP 36.5; O2SAT 98; BMI 21.5
[2022-12-13 21:06] VITALS: BP 136/68; PULSE 72; RESP 16; TEMP 36.8; O2SAT 99
[2022-12-13 21:09] VITALS: BP 136/68; PULSE 72; RESP 14; TEMP 36.8; O2SAT 99
--- NOTE | 2022-12-13 21:10 | PC.NURSE ---
Pt ca&ox3, no signs of distress. Pts at bedside. Pts reports he did not see her fall as she was walking behind him but, believes she tripped over her own feet. Pt denies headstrike and loc. Pt reports she takes atenolol, no blood thinners. wctm
[2022-12-13 21:42] VITALS: BP 112/63; PULSE 63; RESP 16; TEMP 36.8; O2SAT 97
== END 2022-12-13 21:58 | disposition home or self-care (01) ==
PROVIDERS: Emergency Provider Student in an Organized Health Care Education/Training Program; PCP Internal Medicine
DX: S42.211A Unspecified displaced fracture of surgical neck of right humerus, initial encounter for closed fracture (principal); R55 Syncope and collapse; M79.601 Pain in right arm; X58.XXXA Exposure to other specified factors, initial encounter; Y93.9 Activity, unspecified; Y92.9 Unspecified place or not applicable; Y99.9 Unspecified external cause status; Z79.899 Other long term (current) drug therapy
CPT/HCPCS: 36415; 73030; 73070; 80053; 83735; 84484; 85025; 93005; 99283; 99285

== ENCOUNTER 2023-03-31 14:30 | Emergency (ER) | payer MEDICARE, SELFPAY ==
--- NOTE | ~2023-03-31 | CT_ITS ---
CT HEAD WITHOUT IV CONTRAST CT CERVICAL SPINE WITHOUT IV CONTRAST INDICATION: Fall with head strike. COMPARISON: Head CT 06/27/2021. TECHNIQUE: Multidetector CT acquisitions of the head and cervical spine were obtained without IV contrast. Multiplanar reformats were acquired and utilized for image interpretation. This CT examination was performed using dose optimization techniques as appropriate, variously including the following: *Automated exposure control *Adjustment of mA and/or kV according to patient size (this includes techniques or standardized protocols for targeted exams where dose is matched to indication/reason for exam; i.e. extremities or head) *Use of iterative reconstruction technique FINDINGS: HEAD: There is no intracranial hemorrhage, hydrocephalus, extra-axial surface collection, midline shift, or other herniation pattern. Choudhary to white matter differentiation is diffusely maintained without evidence of an evolved acute territorial infarct. The basilar cisterns are preserved. Left occipital scalp hematoma. No acute osseous abnormality. The paranasal sinuses and the mastoid air cells are well aerated. CERVICAL SPINE: Significant widening of the atlantodental interval which measures 5.5 mm suggesting atlantoaxial instability for which neurosurgical consultation is advised. I suspect this finding is most likely chronic given the degree of partially calcified pannus surrounding the dens, the degree of calcified pannus within the atlantodental interval, and the lack of soft tissue swelling in this area. MRI could be obtained to more definitively assess for any superimposed acute traumatic findings in this location or elsewhere within the cervical spine. Advanced cervical spondylosis limits assessment. There is no prevertebral soft tissue swelling. No significant soft tissue abnormality within the neck. The visualized lung apices are clear. CT/CT cervical spine wo IV con IMPRESSION: 1. No acute intracranial abnormality. Left occipital scalp hematoma. 2. Significant widening of the atlantodental interval which measures 5.5 mm suggesting atlantoaxial instability for which neurosurgical consultation is advised. I suspect this finding is most likely chronic given the degree of partially calcified pannus surrounding the dens, the degree of calcified pannus within the atlantodental interval, and the lack of soft tissue swelling in this area. MRI could be obtained to more definitively assess for any superimposed acute traumatic findings in this location or elsewhere within the cervical spine. Advanced cervical spondylosis limits assessment.
[2023-03-31 15:00] VITALS: BP 141/81; PULSE 81; RESP 20; TEMP 36.4; O2SAT 98; BMI 21.5
--- NOTE | 2023-03-31 15:02 | ED_ITS ---
HPI - General Adult General Chief complaint: Fall Stated complaint: fall head inj Time Seen by Provider: 03/31/23 22:53 Source: patient Mode of arrival: ambulatory Limitations: no limitations History of Present Illness HPI narrative: Patient is an 82-year-old female who presents emergency department for evaluation of dura fall with head injury. She states she was standing on a small child size chair trying to reach for something when she ultimately lost her balance falling backwards and striking her head against a cabinet on the way down. She denies any loss consciousness or use of anticoagulants. She has localized pain to the site of her hematoma. Denies any dizziness, lightheadedness, neck pain, neck stiffness, vision changes, chest pain, back pain, numbness or tingling of the extremities, weakness. Related Data Home Medications Medication Instructions Recorded Confirmed atenolol 50 mg tablet 1 tab PO DAILY 01/02/21 01/02/21 calcium carbonate 500 mg calcium 500 mg PO QID 01/02/21 01/02/21 (1,250 mg) chewable tablet cholecalciferol (vitamin D3) 50 50 mcg PO DAILY 01/02/21 01/02/21 mcg (2,000 unit) capsule (Vitamin D3) multivitamin 1 tab PO DAILY 01/02/21 01/02/21 Allergies Allergy/AdvReac Type Severity Reaction Status Date / Time amoxicillin [AMOXICILLIN] Allergy Unknown UNKNOWN Verified 12/13/22 18:46 Review of Systems Review of Systems: Yes all other systems are reviewed and are negative PMFSH Past Medical History Attestation statement: The following information was validated with the patient. Source: old records reviewed Medical History Hx of breast cancer Mitral valve prolapse Surgical History History of lumpectomy of left breast H/O colonoscopy Social History Social History Patient Tobacco Use Status: Never used Tobacco Second Hand Smoke Exposure: No Advance Directives: No Advance Directives Information Provided: No Physical Exam ED Vital Signs: Vital Signs - 24 hr 03/31/23 15:00 03/31/23 22:44 Temperature 97.5 F 98.3 F Pulse Rate 81 78 Respiratory Rate 20 18 Blood Pressure 141/81 H 144/77 H Pulse Oximetry 98 100 Oxygen Delivery Method Room Air Room Air BMI result Body Mass Index 21.5 Appearance: Alert.?Oriented to person, place and time. No acute distress.?Normal affect. Eyes: Pupils equal, round and reactive to light.? ENT: Pharynx normal.?? Neck: Normal inspection.? Neck supple.?? CVS: Heart sounds normal. Normal heart rate and rhythm.? Pulses normal.?? Respiratory: No respiratory distress.? Lung sounds clear to auscultation bilaterally?? Abdomen: Soft and non-tender. Normoactive bowel sounds. Skin: Skin warm and dry.? Normal skin color.? Extremities: No lower extremity edema.? Neuro: Moves all extremities spontaneously. Sensation intact bilaterally. CN II- XII intact. No focal neuro deficits. Ambulates with normal steady gait. Course Course Course Narrative: RME performed by Lissy Kaiser PA-C. Patient is an 82 year old assigned female at presenting to the emergency department with a head injury after a fall. Imaging ordered. Patient placed back in the waiting room pending room availability and results. Medical Decision Making Medical Decision Making MDM Narrative: First contact with patient at 23:05 Patient is an 82-year-old female with past medical history of hypertension who presents emergency department for evaluation of traumatic head injury after a fall with initial reports of localized occipital head pain at the site of hematoma, though she denies any at the time of my examination furthermore she denies any neck pain, or concerning neurological symptoms. He has no neurological deficits upon examination. Upon palpation no palpable step-offs or deformities no midline cervical spine tenderness. 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 23:25 - I consulted with [facility] Dr. Kramer, would accepts patient for trauma transfer to [facility] Emergency Department for trauma consult. I reviewed this with patient and her , they are agreeable with plan of care at this time. Differential Diagnosis Differential Diagnoses: The differential diagnosis associated with the presentation includes (ICH, SDH, fracture, subluxation) Admission/Observation Consideration of admission/observation: Escalation of care including admission/observation considered (As noted above) Consult Healthcare Provider Management of the patient was discussed with: Can Handler ([facility]) Radiology Impression Discussion of test interpretation with radiology: I have reviewed the radiologist's reading. Radiologist Impression: CT/CT cervical spine wo IV con IMPRESSION: 1. No acute intracranial abnormality. Left occipital scalp hematoma. 2. Significant widening of the atlantodental interval which measures 5.5 mm suggesting atlantoaxial instability for which neurosurgical consultation is advised. I suspect this finding is most likely chronic given the degree of partially calcified pannus surrounding the dens, the degree of calcified pannus within the atlantodental interval, and the lack of soft tissue swelling in this area. MRI could be obtained to more definitively assess for any superimposed acute traumatic findings in this location or elsewhere within the cervical spine. Advanced cervical spondylosis limits assessment. Independent Historian Clinical information obtained from an independent historian. 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
[2023-03-31 22:44] VITALS: BP 144/77; PULSE 78; RESP 18; TEMP 36.8; O2SAT 100
--- NOTE | 2023-04-01 01:35 | PC.NURSE ---
Patient requesting to use the bathroom. Bedpan placed and patient able to urinate without issue.
[2023-04-01 01:43] VITALS: RESP 16
[2023-04-01 02:04] VITALS: BP 144/71; PULSE 88; RESP 18; O2SAT 98
--- NOTE | 2023-04-01 06:08 | MHC.EDTECH ---
call out to [facility] transfer line at [id number] for [address] transfer abnormal [address] scan
--- NOTE | 2023-04-01 06:22 | MHC.EDTECH ---
[facility] called back at 2 to accept ED to ED transfer with receiving DR. TAMAYO
--- NOTE | 2023-04-01 06:23 | MHC.EDTECH ---
call out to [facility] at 0011 to book transport for pt transfering over to [facility] ed, estimated eta given was [id number]
== END 2023-04-01 02:09 | disposition short-term general hospital (02) ==
PROVIDERS: Emergency Provider Emergency Medicine; PCP Internal Medicine
DX: S09.90XA Unspecified injury of head, initial encounter (principal); R51.9 Headache, unspecified; M54.2 Cervicalgia; W07.XXXA Fall from chair, initial encounter; Y93.9 Activity, unspecified; Y92.9 Unspecified place or not applicable; Y99.9 Unspecified external cause status; Z79.899 Other long term (current) drug therapy
CPT/HCPCS: 70450; 72125; 99285

== ENCOUNTER 2023-09-30 11:10 | Outpatient (REF) | payer MEDICARE, SELFPAY ==
[2023-09-30 11:16] LABS: MANUAL DIFF FLAG NO
[2023-09-30 11:20] LABS: Basophils Absolute Auto 0.1 X10*3/uL (0.0-0.2); Basophils Percent Auto 0.8 % (0-2); Eosinophils Absolute Auto 0.1 X10*3/uL (0.0-0.4); Eosinophils Percent Auto 1.4 % (0-4); Hematocrit 47.7 % (37.0-47.0); Hemoglobin 15.7 g/dl (12.0-16.0); Imm Gran Abs Auto 0.01 X10*3/uL (0.00-0.03); Imm Gran Pct Auto 0.2 % (0.0-0.4); Lymphocytes Percent Auto 31.9 % (20-40); Mean Corpuscular HGB Conc 32.9 g/dl (31.0-35.0); Mean Corpuscular Hemoglobin 31.2 pg (27.0-33.0); Mean Corpuscular Volume 94.6 fL (80.0-98.0); Mean Platelet Volume 11.8 fL (9.4-12.3); Monocytes Absolute Auto 0.7 X10*3/uL (0.1-1.2); Monocytes Percent Auto 11.2 % (2-11); Neutrophils Absolute Auto 3.4 x10*3/uL (2.0-8.3); Neutrophils Percent Auto 54.5 % (45-73); Platelet Count 190 X10*3/uL (160-400); Red Blood Count 5.04 X10*6/uL (4.20-5.50); White Blood Count 6.3 X10*3/uL (4.8-10.8)
[2023-09-30 11:30] LABS: Appearance Urine Cloudy; Color Urine Yellow; Glucose Urine UA Negative (Negative); Leukocyte Esterase Urine Moderate (2+) (Negative); Nitrite Urine Negative (Negative); Specific Gravity - Urine 1.025 (1.005-1.025); UMIC TRIGGER UACC YES; Urine Blood Negative (Negative); Urine Ketones Negative (Negative); Urine Protein Negative (Neg-Trace)
[2023-09-30 12:01] LABS: Bacteria Urine 2+ (None Seen); Calcium Oxalate Crystals Urine Present; Hyaline Casts Urine 0-2 /LPF (0-2); RBC Urine 0-2 /HPF (0-2); UACC Culture Trigger YES
[2023-09-30 12:11] LABS: Alanine Aminotransferase 17 U/L (0-31); Albumin Level 4.3 g/dL (3.5-5.0); Alkaline Phosphatase 70 U/L (39-117); Anion Gap 14 (12-20); Aspartate Amino Transferase 24 U/L (5-31); Bilirubin Total 0.6 mg/dL (0.0-1.0); Blood Urea Nitrogen 17 mg/dL (9-16); Calcium 10.3 mg/dL (8.4-10.2); Carbon Dioxide 25 mmol/L (22-29); Chloride 110 mmol/L (96-108); Cholesterol 189 mg/dL (<200); Estimated Glomerular Filt Rate > 60; Glucose Fasting 93 mg/dL (60-99); HDL Cholesterol 66 mg/dL (>40); LDL Cholesterol Calculated 103 mg/dL (<100); Potassium 5.2 mmol/L (3.3-5.1); Sodium 144 mmol/L (135-145); Total Protein 7.8 g/dL (6.5-8.0); Triglycerides 103 mg/dL (<150)
== END 2023-09-30 11:11 | disposition home or self-care (01) ==
LOC: HO.LNP 11:10
PROVIDERS: Visit Provider Internal Medicine
DX: I10 Essential (primary) hypertension (principal); D72.821 Monocytosis (symptomatic); R82.90 Unspecified abnormal findings in urine
CPT/HCPCS: 80053; 80061; 81001; 85025; 87086

== ENCOUNTER 2023-10-07 15:38 | Outpatient (REF) | payer MEDICARE, SELFPAY ==
[2023-10-07 16:04] LABS: Potassium 4.9 mmol/L (3.3-5.1)
== END 2023-10-07 15:39 | disposition home or self-care (01) ==
LOC: HO.LNP 15:38
PROVIDERS: Visit Provider Internal Medicine
DX: E87.5 Hyperkalemia (principal)
CPT/HCPCS: 84132

== ENCOUNTER 2023-10-30 10:58 | Outpatient (REF) | payer MEDICARE, SELFPAY ==
[2023-10-30 12:06] LABS: Potassium 4.5 mmol/L (3.3-5.1)
== END 2023-10-30 10:59 | disposition home or self-care (01) ==
LOC: HO.LNP 10:58
PROVIDERS: Visit Provider Internal Medicine
DX: E78.5 Hyperlipidemia, unspecified (principal)
CPT/HCPCS: 84132

== ENCOUNTER 2024-10-04 09:53 | Outpatient (REF) | payer MEDICARE, SELFPAY ==
[2024-10-04 09:56] LABS: MANUAL DIFF FLAG NO
[2024-10-04 10:16] LABS: Appearance Urine Cloudy; Color Urine Yellow; Glucose Urine UA Negative (Negative); Leukocyte Esterase Urine Large (3+) (Negative); Nitrite Urine Negative (Negative); UMIC TRIGGER UACC YES; Urine Blood Negative (Negative); Urine Ketones Negative (Negative); Urine Protein Negative (Neg-Trace)
[2024-10-04 10:20] LABS: Bacteria Urine 2+ (None Seen); Hyaline Casts Urine 0-2 /LPF (0-2); RBC Urine 0-2 /HPF (0-2); UACC Culture Trigger YES
[2024-10-04 10:48] LABS: Basophils Absolute Auto 0.1 X10*3/uL (0.0-0.2); Basophils Percent Auto 1.1 % (0-2); Eosinophils Absolute Auto 0.1 X10*3/uL (0.0-0.4); Eosinophils Percent Auto 1.1 % (0-4); Hematocrit 46.8 % (37.0-47.0); Hemoglobin 15.5 g/dl (12.0-16.0); Imm Gran Abs Auto 0.02 X10*3/uL (0.00-0.03); Imm Gran Pct Auto 0.4 % (0.0-0.4); Lymphocytes Absolute Auto 1.5 X10*3/uL (1.2-4.9); Lymphocytes Percent Auto 26.3 % (20-40); Mean Corpuscular HGB Conc 33.1 g/dl (31.0-35.0); Mean Corpuscular Hemoglobin 30.9 pg (27.0-33.0); Mean Corpuscular Volume 93.4 fL (80.0-98.0); Mean Platelet Volume 11.3 fL (9.4-12.3); Monocytes Absolute Auto 0.6 X10*3/uL (0.1-1.2); Neutrophils Absolute Auto 3.4 x10*3/uL (2.0-8.3); Neutrophils Percent Auto 60.1 % (45-73); Platelet Count 168 X10*3/uL (160-400); Red Blood Count 5.01 X10*6/uL (4.20-5.50); Red Cell Distribution Width 13.4 % (11.0-16.0); White Blood Count 5.6 X10*3/uL (4.8-10.8)
[2024-10-04 11:03] LABS: Alanine Aminotransferase 19 U/L (0-31); Albumin Level 4.2 g/dL (3.5-5.0); Alkaline Phosphatase 76 U/L (39-117); Anion Gap 15 (12-20); Aspartate Amino Transferase 30 U/L (5-31); Bilirubin Total 0.8 mg/dL (0.0-1.0); Blood Urea Nitrogen 15 mg/dL (9-16); Calcium 9.9 mg/dL (8.4-10.2); Carbon Dioxide 25 mmol/L (22-29); Chloride 108 mmol/L (96-108); Cholesterol 194 mg/dL (<200); Estimated Glomerular Filt Rate > 60; Glucose Fasting 94 mg/dL (60-99); HDL Cholesterol 69 mg/dL (>40); LDL Cholesterol Calculated 103 mg/dL (<100); Potassium 4.3 mmol/L (3.3-5.1); Sodium 144 mmol/L (135-145); Total Protein 7.3 g/dL (6.5-8.0); Triglycerides 111 mg/dL (<150)
--- OUTSIDE RECORDS SUMMARY | 2024-10-04 11:20 | XMS_ITS | Patient Health Record ---
Author Organization [facility] Address [address] [place] [address] Care Team Providers Care Porcelain Enameler Name Role Phone Olena COULTER, Clive Primary Care Provider Erin Hammond Unavailable [phone] Allergies No Known Allergies Reason For Referral No Information Medications Medication SIG (Take, Route, Frequency, Duration) Notes Start Date End Date Status Atenolol 50 MG 1 tablet Orally Once a day for 30 day(s) Active Tums Active Multivitamin Active Aspirin 81 MG 1 tablet Orally Once a day for 30 day(s) daily Not-Taking Ammonium Lactate 12 % 1 application Exte rnally to affected areas of dry skin to feet except for between the toes Twice a day for 30 days Active Ammonium Lactate 12 % 1 application to a ffected area Externally to feet Twice a day for 30 days Active Naprosyn 375 MG 1 tablet Orally Twic e a day for 15 days 05/10/2014 Not-Taking Percocet 5-325 MG 1 tablet as needed O rally every 4-6 hrs for as needed 05/10/2014 Not-Taking Immunizations Vaccine Route Administration Date Status Comme nts COVID-19 Pfizer BioNTech Vaccine Unknown 03/28/2021 Administered 1st vaccine 07/14/20 2nd vaccine 08/04/20 Social History Tobacco Use: Social History Observation Description Date Details (start date - stop date) Never Smoker NA - NA Alcohol Screen Question Answer Notes Did you have a drink containing alcohol in the p ast year? No Points 0 Interpretation Negative Tobacco use other than smoking: Question Answer Notes Are you an other tobacco user? No Tobacco Control (Standard) Question Answer Notes Tobacco use: Nonsmoker Additional Findings: Tobacco non-user Current no nsmoker Problems Problem Type SNOMED Code ICD Code Onset Dates Problem Status W/U Status Risk Notes Problem Acquired hammer toe of right foot (8289851977952033 ) Other hammer toe(s) (acquired), right foot (M20.41) Active confirmed Problem Acquired hallux valgus (68737246) Hallux valgus (acquired), left foot (M20.12) Active confirmed Problem Acquired hammer toe of left foot (4335012230506312 ) Other hammer toe(s) (acquired), left foot (M20.42) Active confirmed Problem Plantar wart (93550906) Plantar wart (B07.0) Active confirmed Problem Acquired hallux valgus (68889395) Hallux valgus (acquired), right foot (M20.11) Active confirmed Problem Ulcer of toe (610869266) Non-pressure chronic ulcer of other part of left foot limited to breakdown of skin (L97.521) Active confirmed Problem Bilateral atherosclerosis of arteries of lower limbs (disorder) (4969988644597255 7) Atherosclerosis of [place] artery of both lower extremities, with unspecified presence of clinical manifestation (I70.203) Active confirmed Q7(A), Q8(2B), Q9(1B,2C) Problem Ulcer of toe of right foot (disorder) (0757189447378142 1) Skin ulcer of toe of right foot, limited to breakdown of skin (L97.511) Active confirmed Nonapplicable Problem Ulcer of toe of left foot (disorder) (0729760715337255 2) Skin ulcer of toe of left foot, limited to breakdown of skin (L97.521) Active confirmed Response to treatment - Improvement Vital Signs Blood pressure diastolic 67 mm Hg 07/27/2024 Height 5 ft 1 in in 07/27/2024 Blood pressure systolic 120 mm Hg 07/27/2024 Weight 100 lbs 07/27/2024 BMI 18.89 kg/m2 07/27/2024 Procedures Procedure Date Ordered Date Performed Result Body Sit e 23346-NHMNHKJ NAIL, 6 OR MORE 11/04/2023 N/A 64612-Jjrr Destruction, 1-14 11/04/2023 N/A 80984-Ssupzftb Plate 11/04/2023 N/A 93414- Debride <25 sq cm 11/04/2023 N/A 12957-YHXQHBC NAIL, 6 OR MORE 02/03/2024 N/A 18973-Jito Destruction, 1-14 02/03/2024 N/A 84862- Debride <25 sq cm 02/03/2024 N/A 11553-ORTMYPW NAIL, 6 OR MORE 05/04/2024 N/A 07431-Ojtb Destruction, 1-14 05/04/2024 N/A 73514 I&D ABSCESS- SIMPLE,SINGLE 05/04/2024 N/A 97236-JNJO SKIN LESIONS, OVER 4 05/04/2024 N/A 33523-WHJWPBT NAIL, 6 OR MORE 07/27/2024 N/A 47395-Jkhi Destruction, 1-14 07/27/2024 N/A 32257-UUKV SKIN LESIONS, OVER 4 07/27/2024 N/A Encounters Encounter Location Date Provider Diagnosis [address] [address] 11/04/2023 Erin Black Tinea unguium B35.1 ; Pain in right toe(s) M79.674 ; Pain in left toe(s) M79.675 ; Left foot pain M79.672 ; Plantar wart B07.0 ; Skin ulcer of toe of left foot, limited to breakdown of skin L97.521 and Ingrown nail L60.[address] [address] 02/03/2024 Erin Black Tinea unguium B35.1 ; Pain in right toe(s) M79.674 ; Pain in left toe(s) M79.675 ; Left foot pain M79.672 ; Plantar wart B07.0 ; Skin ulcer of toe of left foot, limited to breakdown of skin L97.521 and Ingrown nail L60.[address] [address] 05/04/2024 Erin Black Tinea unguium B35.1 ; Pain in right toe(s) M79.674 ; Pain in left toe(s) M79.675 ; Left foot pain M79.672 ; Plantar wart B07.0 ; Abscess of left foot L02.612 and Atherosclerosis of [place] artery of both lower extremities, with unspecified presence of clinical manifestation I70.203 [facility] [address] [address] 07/27/2024 Erin Black Plantar wart B07.0 ; Atherosclerosis of [place] artery of both lower extremities, with unspecified presence of clinical manifestation I70.203 ; Tinea unguium B35.1 ; Pain in right toe(s) M79.674 ; Pain in left toe(s) M79.675 ; Left foot pain M79.672 and Xerosis of skin L85.3 Assessments Encounter Date Diagnosis (ICD Code) Assessment Notes Treatment Notes Treatment Clinical Notes Section Notes 11/04/2023 Tinea unguium (ICD-10 - B35.1) 02/03/2024 Tinea unguium (ICD-10 - B35.1) 05/04/2024 Tinea unguium (ICD-10 - B35.1) 07/27/2024 Plantar wart (ICD-10 - B07.0) 07/27/2024 Atherosclerosis of [place] artery of both lower extremities, with unspecified presence of clinical manifestation (ICD-10 - I70.203) Q7(A), Q8(2B), Q9(1B,2C) 07/27/2024 Tinea unguium (ICD-10 - B35.1) 05/04/2024 Pain in right toe(s) (ICD-10 - M79.674) 02/03/2024 Pain in right toe(s) (ICD-10 - M79.674) 11/04/2023 Pain in right toe(s) (ICD-10 - M79.674) 11/04/2023 Pain in left toe(s) (ICD-10 - M79.675) 02/03/2024 Pain in left toe(s) (ICD-10 - M79.675) 05/04/2024 Pain in left toe(s) (ICD-10 - M79.675) 07/27/2024 Pain in right toe(s) (ICD-10 - M79.674) 07/27/2024 Pain in left toe(s) (ICD-10 - M79.675) 05/04/2024 Left foot pain (ICD-10 - M79.672) 02/03/2024 Left foot pain (ICD-10 - M79.672) 11/04/2023 Left foot pain (ICD-10 - M79.672) 11/04/2023 Plantar wart (ICD-10 - B07.0) 11/04/2023 Skin ulcer of toe of left foot, limited to breakdown of skin (ICD-10 - L97.521) Response to treatment - Improvement Patient Educated with: WOUND CARE INSTRUCTIONS. pdf (WOUND CARE INSTRUCTIONS. pdf) 02/03/2024 Plantar wart (ICD-10 - B07.0) 05/04/2024 Abscess of left foot (ICD-10 - L02.612) Patient Educated with: WOUND CARE INSTRUCTIONS. pdf (WOUND CARE INSTRUCTIONS. pdf) 05/04/2024 Plantar wart (ICD-10 - B07.0) 07/27/2024 Left foot pain (ICD-10 - M79.672) 05/04/2024 Atherosclerosis of [place] artery of both lower extremities, with unspecified presence of clinical manifestation (ICD-10 - I70.203) Q7(A), Q8(2B), Q9(1B,2C) 07/27/2024 Xerosis of skin (ICD-10 - L85.3) 11/04/2023 Ingrown nail (ICD-10 - L60.0) 02/03/2024 Skin ulcer of toe of left foot, limited to breakdown of skin (ICD-10 - L97.521) Response to treatment - Improvement Patient Educated with: WOUND CARE INSTRUCTIONS. pdf (WOUND CARE INSTRUCTIONS. pdf) 02/03/2024 Ingrown nail (ICD-10 - L60.0) 05/04/2024 Other 07/27/2024 Other Plan Of Treatment Pending Test Test Name Order Date X ray : Foot, right 2V 03/04/2012 31580-BKBEFSI NAIL, 6 OR MORE 06/10/2012 07630-RXFGQIE NAIL, 6 OR MORE 08/20/2012 06377-OSNAOZM NAIL, 6 OR MORE 11/04/2012 78527-JSQTUNT NAIL, 6 OR MORE 01/13/2013 91231-KTTYJTY NAIL, 6 OR MORE 03/31/2013 04675-CEMJVWV NAIL, 6 OR MORE 06/23/2013 66248-ORDRFCQ NAIL, 6 OR MORE 09/03/2013 69682-NOOHQAH NAIL, 6 OR MORE 11/16/2013 06769-SEELXDF NAIL, 6 OR MORE 02/22/2014 56748-NQKMADW NAIL, 6 OR MORE 08/23/2014 81325-SLYVIIT NAIL, 6 OR MORE 01/31/2015 41228-DYLWHZY NAIL, 6 OR MORE 05/09/2015 02085-BAEBJWO NAIL, 6 OR MORE 08/08/2015 44215-EZPTFNE NAIL, 6 OR MORE 11/14/2015 98453-SAZWBJX NAIL, 6 OR MORE 11/08/2014 46176-FKQYOBA NAIL, 6 OR MORE 03/01/2016 77449-RGUHOXW NAIL, 6 OR MORE 05/10/2016 16928-NHJIDDB NAIL, 6 OR MORE 08/09/2016 42046-LNPKYDN NAIL, 6 OR MORE 11/08/2016 45029-ZSSMGZR NAIL, 6 OR MORE 02/07/2017 08813-YTJWZAD NAIL, 6 OR MORE 05/09/2017 27442-JOWGXZR NAIL, 6 OR MORE 08/08/2017 36519-UDDGWKO NAIL, 6 OR MORE 11/07/2017 05028-NSANDLY NAIL, 6 OR MORE 02/06/2018 86526-POLLMUO NAIL, 6 OR MORE 05/15/2018 20431-WQKVWTA NAIL, 6 OR MORE 08/18/2018 67084-YVTOTMA NAIL, 6 OR MORE 11/20/2018 50819-ORPGSLC NAIL, 6 OR MORE 02/23/2019 33282-BIFAFID NAIL, 6 OR MORE 05/24/2019 91661-YFPOOXD NAIL, 6 OR MORE 01/04/2020 95601-WKHXAGR NAIL, 6 OR MORE 04/04/2020 35457-ZFJVBYQ NAIL, 6 OR MORE 07/04/2020 82090-GGNUVMY NAIL, 6 OR MORE 10/03/2020 55787-DSBSJZG NAIL, 6 OR MORE 01/02/2021 67166-GCTTXGZ NAIL, 6 OR MORE 04/04/2021 21425-GRXHKZN NAIL, 6 OR MORE 07/17/2021 60634-HUMJNBJ NAIL, 6 OR MORE 10/16/2021 27658-SASGGNK NAIL, 6 OR MORE 01/15/2022 74879-QEVDMHP NAIL, 6 OR MORE 04/23/2022 66869-YWSMGLM NAIL, 6 OR MORE 07/23/2022 91998-EZGLADR NAIL, 6 OR MORE 10/22/2022 98464-KOXLHBV NAIL, 6 OR MORE 01/21/2023 12406-JJSFDTH NAIL, 6 OR MORE 04/22/2023 59183-ZWVNTRT NAIL, 6 OR MORE 08/13/2023 82703-UJZWHJC NAIL, 6 OR MORE 11/04/2023 99417-GNDZMJH NAIL, 6 OR MORE 02/03/2024 74511-DBSKEJI NAIL, 6 OR MORE 05/04/2024 97632-UBQKVBR NAIL, 6 OR MORE 07/27/2024 06719-Bpbq Destruction, -07/27/2024 69146-Kxyz Destruction, -14 05/04/2024 66023-Nvej Destruction, -14 11/04/2023 00801-Mewt Destruction, -14 02/03/2024 37748-Jcbn Destruction, -14 08/13/2023 39720-Xgwp Destruction, -14 04/22/2023 88763-Gmhb Destruction, -04/23/2022 67151-Svbz Destruction, 06-2207/23/2022 11394-Awbz Destruction, 14 01/15/2022 53430-Aceo Destruction, -14 07/17/2021 50004-Sxzs Destruction, 06-2210/16/2021 04476-Nmng Destruction, 06-2204/04/2021 48828-Ptsi Destruction, 14 07/04/2020 64865-Wqpu Destruction, 06-2201/02/2021 93245-Lxky Destruction, -14 10/03/2020 91645-Soic Destruction, 14 04/04/2020 19013-Bfar Destruction, 06-2201/04/2020 26077-Ikjt Destruction, -14 05/24/2019 66736-Ezsc Destruction, -14 02/23/2019 43918-Znnt Destruction, -14 11/20/2018 38539-Yqmv Destruction, 06-2211/08/2016 88299-Tcyw Destruction, 06-2208/18/2018 16830-Yyni Destruction, 06-2205/15/2018 62424-Nidi Destruction, 06-2202/06/2018 10805-Ktag Destruction, 06-2211/07/2017 35697-Lzsu Destruction, 06-2208/08/2017 87559-Ypjf Destruction, 06-2205/09/2017 55544-Pxfn Destruction, 06-2202/07/2017 67470-Vtox Destruction, 06-2208/09/2016 64667-Vces Destruction, 06-2205/10/2016 32955-Hldb Destruction, 06-2203/01/2016 64062-Xsfk Destruction, 06-2211/08/2014 95283-Ipeh Destruction, 06-2211/14/2015 47222-Nemo Destruction, 06-2208/08/2015 98496-Bpfd Destruction, 06-2208/23/2014 67293-Mffdyaoi Plate 11/16/2013 81808-Pvzsmbxk Plate 08/23/2014 77950-Zfhkfikj Plate 02/22/2014 25682-Kstqxacu Plate 01/13/2013 88506-Ezcmxvyo Plate 08/18/2018 93413-Awtknrpj Plate 02/23/2019 20020-Twnwlahm Plate 01/04/2020 46191-Ebzhdbio Plate 04/04/2021 22297-Brgewugl Plate 07/17/2021 52461-Kzkhmanf Plate 01/15/2022 24148-Jloqxmed Plate 11/04/2023 01852-Zjyiinpi Plate Each Additional 46874-Tyksthkh Plate Each Additional 59435-Rvmnspoj Plate Each Additional 66852- Debride <25 sq cm 04/07/2014 08126- Debride <25 sq cm 05/10/2014 22020- Debride <25 sq cm 05/20/2014 80436- Debride <25 sq cm 05/31/2014 43682- Debride <25 sq cm 06/14/2014 23504- Debride <25 sq cm 02/22/2014 20195- Debride <25 sq cm 11/16/2013 84067- Debride <25 sq cm 08/20/2012 36497- Debride <25 sq cm 06/10/2012 51671- Debride <25 sq cm 03/19/2012 58956- Debride <25 sq cm 09/03/2013 42621- Debride <25 sq cm 03/04/2012 42521- Debride <25 sq cm 07/27/2013 51668- Debride <25 sq cm 03/31/2013 71012- Debride <25 sq cm 11/14/2015 01883- Debride <25 sq cm 11/30/2015 01783- Debride <25 sq cm 03/01/2016 62264- Debride <25 sq cm 05/10/2016 37210- Debride <25 sq cm 08/09/2016 88137- Debride <25 sq cm 01/04/2020 62437- Debride <25 sq cm 05/24/2019 81812- Debride <25 sq cm 04/04/2020 98688- Debride <25 sq cm 07/04/2020 46772- Debride <25 sq cm 10/16/2021 62026- Debride <25 sq cm 01/15/2022 22971- Debride <25 sq cm 07/17/2021 17645- Debride <25 sq cm 01/02/2021 73776- Debride <25 sq cm 02/03/2024 46788- Debride <25 sq cm 04/23/2022 11162- Debride <25 sq cm 07/23/2022 03501- Debride <25 sq cm 01/21/2023 58056- Debride <25 sq cm 11/04/2023 31625- Debride <25 sq cm 08/13/2023 91296-RGKGUOE SKIN/TISSUE 06/23/2013 50085 I&D ABSCESS- SIMPLE,SINGLE 024 72425-DMNF SKIN LESIONS, OVER 4 07/27/19 25 16191-GNWS SKIN LESIONS, OVER 4 05/04/20 24 Next Appt Details Provider Name:Erin Briceno Teddy , 10/29/2024 09:00:00 AM, [address] [place] [address], [place], [address], Insurance Providers Payer Name Payer Address Payer Phone Subscriber Number Group Number Insured Name Patient Relationship to Insured Coverage Start Date Coverage End Date [employer] [address] [facility] [place] [address] [phone] [id number] Bonny Jackson Self - patient is the insured Medical (General) History Medical History History ICD Code cancer heart disease measles mumps chicken pox Phlebitis Surgical History Surgery Date(Month/Year) breast surgery 2010 HT/Tent right 4th 05/17/2014 colonoscopy 2015 [place] in head 11/21/2019 Hospitalization History Reason Date(Month/Year) [facility] [place] 06/2021 Admitted to [facility] x 2 days, 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
--- OUTSIDE RECORDS SUMMARY | 2024-10-04 11:20 | XMS_ITS ---
Author Organization [facility] Address [address] [place] [address] Care Team Providers Care Informatics Consultant Name Role Phone Olena COULTER, Clive Primary Care Provider Sabraoswaldo stanleymaury EspinalErin Unavailable [phone] Allergies No Known Allergies REASON FOR VISIT Wart(s), At Risk Footcare, Painful Nail(s) aggravated by shoes and causing difficulty standing/walking., Toe Pain Medications Medication SIG (Take, Route, Frequency, Duration) Notes Start Date End Date Status Percocet 5-325 MG 1 tablet as needed O rally every 4-6 hrs for as needed 05/10/2014 Not-Taking Naprosyn 375 MG 1 tablet Orally Twic e a day for 15 days 05/10/2014 Not-Taking Aspirin 81 MG 1 tablet Orally Once a day for 30 day(s) daily Not-Taking Multivitamin Active Atenolol 50 MG 1 tablet Orally Once a day for 30 day(s) Active Ammonium Lactate 12 % 1 application to a ffected area Externally to feet Twice a day for 30 days Active Tums Active Social History Tobacco Use: Social History Observation Description Date Details (start date - stop date) Never Smoker NA - NA Tobacco Use/Smoking Question Answer Notes Are you a: nonsmoker Alcohol Screen Question Answer Notes Did you have a drink containing alcohol in the p ast year? No Points 0 Interpretation Negative Tobacco use other than smoking: Question Answer Notes Are you an other tobacco user? No Problems Problem Type SNOMED Code ICD Code Onset Dates Problem Status W/U Status Risk Notes Problem Bilateral atherosclerosis of arteries of lower limbs (disorder) ([id number] ) Atherosclerosis of wiyot artery of both lower extremities, with unspecified presence of clinical manifestation (I70.203) Active confirmed Q7(A), Q8(2B), Q9(1B,2 C) Vital Signs Height 5 ft 1 in in 05/04/2024 Weight 100 lbs 05/04/2024 BMI 18.89 kg/m2 05/04/2024 Procedures Procedure Date Ordered Date Performed Result Body Sit e 74454-ZKSVJSA NAIL, 6 OR MORE 05/04/2024 N/A 86931-Uvoc Destruction, 1-14 05/04/2024 N/A 81478 I&D ABSCESS- SIMPLE,SINGLE 05/04/2024 N/A 21618-CNTX SKIN LESIONS, OVER 4 05/04/2024 N/A Encounters Encounter Location Date Provider Diagnosis [facility] [address] [address] 05/04/2024 Erin Black Tinea unguium B35.1 ; Pain in right toe(s) M79.674 ; Pain in left toe(s) M79.675 ; Left foot pain M79.672 ; Plantar wart B07.0 ; Abscess of left foot L02.612 and Atherosclerosis of wiyot artery of both lower extremities, with unspecified presence of clinical manifestation I70.203 Assessments Encounter Date Diagnosis (ICD Code) Assessment Notes Treatment Notes Treatment Clinical Notes Section Notes 05/04/2024 Tinea unguium (ICD-10 - B35.1) 05/04/2024 Pain in right toe(s) (ICD-10 - M79.674) 05/04/2024 Pain in left toe(s) (ICD-10 - M79.675) 05/04/2024 Left foot pain (ICD-10 - M79.672) 05/04/2024 Plantar wart (ICD-10 - B07.0) 05/04/2024 Abscess of left foot (ICD-10 - L02.612) Patient Educated with: WOUND CARE INSTRUCTIONS. pdf (WOUND CARE INSTRUCTIONS. pdf) 05/04/2024 Atherosclerosis of wiyot artery of both lower extremities, with unspecified presence of clinical manifestation (ICD-10 - I70.203) Q7(A), Q8(2B), Q9(1B,2C) 05/04/2024 Other Plan Of Treatment Treatment Notes Assessment Notes Abscess of left foot Patient Educated wi th: WOUND CARE INSTRUCTIONS.pdf (WOUND CARE INSTRUCTIONS.pdf) Pending Test Test Name Order Date 68705-KZKTDKF NAIL, 6 OR MORE 05/04/2024 50880-Tori Destruction, 1-14 05/04/2024 54515 I&D ABSCESS- SIMPLE,SINGLE 024 77142-CEUD SKIN LESIONS, OVER 4 05/04/20 24 Next Appt Details Follow Up: 2 Weeks, Reason: Provider Name:Erin Espinal , 10/29/2024 09:00:00 AM, [address], [place], [address], Procedure Notes * Category Sub-Category Detail Notes Wart Treatment Procedure Verrucae were de brided to pin-point bleeding margins with sterile 15 surgical blade, silver nitrate chemocautery applied, recomm. immune-boosting meds such as zinc, recomm. follow up with topical chemosurgical agents, Pt STILL, defers any other forms of tx (78892) I & D Procedure: ABSCESS: Due to presence of unrelieved pain despite conservative measures taken, an Incision and Drainage was recommended. The area located as per exam was prepped with betadine/alcohol, The area was incised with use of sterile 15 blade or sterile tissue nipper. The wound, once opened, was drained of approximately ( 0.5 ) cc purulent fluid, and debrided of devitilized tissue using same instramentation. A dry sterile dressing with antibiotic ointment was applied. The patient tolerated the procedure well and related a decrease in symptoms upon discharge. Local wound care instructions were discussed and dispensed to the patient (28319) Location , T1 Anesthesia , was accomplished T OPICALLY with Lidocaine Hydrochloride Jelly 2 percent Debride Nail 6-10 Nail debridement Performance o f this nail treatment by a nonprofessional would put this patients foot and overall health at risk. Therefore, debridement to affected nail(s), as described in exam, was performed extensively to reduce/remove overall nail length, girth, thickness, subungual debris, and necrotic tissue, by manual and/or electrical means through the use of a nail nipper and/or dremel-type grinder operator external tool, to a more viable healthy nail plate or bed tissue 6-10 nails in total. Silver nitrate was used for any petechial bleeding as necessary. Definitive antifungal treatment options, both pharmaceutical and surgical, have been reviewed and discussed with the patient. The patient solely prefers the use of intermittent/as needed professional debridement services for their nail condition and understands the need for additional periodic treatments to maintain effectiveness in symptomatic relief - 64570 Keratoma Treatment Parring or Cutting o f Benign Hyperkeratotic Lesion(s) ..., (-57) More than 4 Lesions - The Benign hyperkeratotic lesions, ( 4 ) in total, locations as stated and described in exam, were pared, and/or cut utilizing a sterile 15 blade, tissue nippers, and/or power ExtraFootie instrumentation - 13803 Progress Notes * Bonny KEITH PDOB:1939 (84 yo F)Acc No.[id number]:05/04/2024 Progress Note Patient:?Bonny KEITH P Provider:?Erin Espinal DPM :1940???Age:84 Y???Sex:Female D ate:05/04/2024 Address:[address] [place] [id number] Pcp:Clive Hyatt MD Subjective: * Chief Complaints: * ???Wart(s)At Risk FootcarePa inful Nail(s) aggravated by shoes and causing difficulty standing/walking.Toe Pain * HPI: ???Painful Nails:?Pt States Last PCP Visit:?Date:?04/23/2024 ???Possible Infection:?Treatments:?soaks.?At Risk footcare:?Pt States Last PCP Visit:?Date?04/23/2024 * ROS:?General/Constitutional:?Nausea?denies.?Vomiting?denies.?Hunger Thirst?denies.?Loss appetite?denies.?Chills?denies.?Fatigue?denies.?Fever?denies.?Night Sweats?denies.?Unexplained weight loss?denies.?Ophthalmologic:?Blurred vision?denies.?Red eye?denies.?HEENTM:?Dentures?denies.?Dizziness?denies.?Glasses/contacts?admits.?Retinopathy?de nies.?Blurred/double vision?denies.?TMJ?denies.?Discharge/drainage?denies.?Implants?denies.?Hard of hearing denies.?Difficulty chewing/swallowing/speaking?denies.?Nose bleeds?denies.?Sore mouth?denies.?Swollen glands?denies.?Respiratory:?On Oxygen?denies.?Pneumonia/pleurisy?denies.?Bronchitis?denies.?Emphysema?denies.?C oughing?denies.?Cough blood?denies.?Shortness of breath?denies.?Wheezing?denies.?Cardiovascular:?Pacemaker?denies.?MVP?denies.?WPW?denies.?CHF?denies.?Heart attack?denies.?Septal defect?denies.?Rapid beat?denies.?Chest pain ?denies.?Atrial Fib.?denies.?Murmur/Palpitations?denies.?Gastrointestinal:?Hemorrhoids?denies.?Stomach/Abdominal pain?denies.?Dark blood stool?denies.?Irritable bowel ?denies.?Constipation?denies.?Diarrhea?denies.?Vomiting?denies.?Hematology:?Swelling?denies.?Bruising?denies.?Bleeding problem?denies.?Genitourinary:?Blood urine?denies.?Frequent/Painfu/urination/bladder control?denies.?Kidney stones?denies.?Infection (UTI)?denies.?Nephropathy?denies.?Musculoskeletal:?Hammertoes?admits.?Bunions?denies.?Scoliosis/kyphosis?denies.?Muscle cramps / walking?denies.?Generalized aches and pains?denies.?Weakness?denies.?Integ.:?[place]?denies.?Scars?denies.?Corns/calluses?denies.?Ingrown nails?denies.?Painful nails?admits.?Rashes?denies.?Neurologic:?Difficulty sleeping?denies.?Bipolar?denies.?Brain disorder?denies.?Balance trouble?denies.?Confusion?denies.?Fainting/blackouts?denies.?Headache?denies.?Tr emors?denies.? * Medical History:? 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 Pt denies family history. * Social History:?Tobacco Use:?Tobacco Use/Smoking?Are you a:?nonsmoker ?Tobacco use other than smoking?Are you an other tobacco user??No ???Drugs/Alcohol:?Drugs?Have you used drugs other than those for medical reasons in the past 12 months??No ?Alcohol Screen?Did you have a drink containing alcohol in the past year??No ?Points?0 ?Interpretation?Negative ???Miscellaneous:?Caffeine: no. ?Children: yes. ?Exercise: yes, walking. ?Marital status: . ?Occupation: Retired. * Medications:?TakingAtenolol 50 MG Tablet 1 tablet Orally Once a day Multivitamin Tums Ammonium Lactate 12 % Cream 1 application to affected area Externally to feet Twice a day Taking Atenolol 50 MG Tablet 1 tablet Orally Once a day Taking Multivitamin Taking Tums Taking Ammonium Lactate 12 % Cream 1 application to affected area Externally to feet Twice a day Not-Taking/PRNAspirin 81 MG Tablet Chewable 1 tablet Orally Once a day , Notes to Pharmacist: dailyPercocet 5-325 MG Tablet 1 tablet as needed Orally every 4-6 hrs Naprosyn 375 MG Tablet 1 tablet Orally Twice a day Medication List reviewed and reconciled with the patientNot-Taking/PRN Aspirin 81 MG Tablet Chewable 1 tablet Orally Once a day , Notes to Pharmacist: dailyNot- Taking/PRN Percocet 5-325 MG Tablet 1 tablet as needed Orally every 4-6 hrs Not-Taking/PRN Naprosyn 375 MG Tablet 1 tablet Orally Twice a day Medication List reviewed and reconciled with the patient * Allergies:?N.K.D.A.yes[Aller gies Verified] Objective: * Vitals:?Ht: 5 ft 1 in, Wt: 1 00, BMI: 18.89, Shoe size: 7, Wt-k.36 kg. * Examination: ???General Examination: ?GENERAL APPEARANCE:?Denies fever, chills, malaise, lymphadenopathy , Reveals a pleasant, alert, well nourished, well-developed, well hydrated individual, who demonstrates proper attention to hygiene/body habitus, and is in no acute distress, Pt serves as own historian for office visit today.?ORIENTED:?person, place, and time.?Nails: ?NAILS are:?Elongated, overgrown, dystrophic, lytic, greater than 3mm thick, discolored and friable with crumbly malodorous subungual debris, with pain on palpation , TA, , T2 , T3 , T4 , T5 , T6 , T7 , T8 , T9 ,.?Dermatologic: ?SKIN FINDINGS:?Skin shows sign(s) of, severely painful abscess of approximate size at ( 4?) mm distal T1 , Skin exam reveals Keratotic lesion(s) located at, 1, 5, B/L, , Plantar Heel(s), B/L.?VERRUCA:?Reveals a Single , multi-loculated , mosaic-patterned, round, raised, flat-topped, petechial bleeding papule(s), with cauliflower appearance and interruption of skin lines, pain to lateral compression, and size estimated at 1mm diameter , plantar Midfoot , RIGHT.?Vascular: ?DP PULSES(B):?, 06/12, B/L.?PT PULSES(B):? 0/4, B/L.?CAPILLARY FILL TIME:? delayed, all digits, B/L.?TROPHIC CONDITION-TEXTURE/ELASTICITY/TURGOR/HAIR GROWTH(B):? decreased, fragile, thin, shiny skin, with sparse to absent hair growth, B/L.?TEMPERTURE GRADIENT(C):? decreased, cool to cool, proximal to distal, B/L.?PIGMENTATION:?pale, B/L.?EDEMA(C):?, 06/12, B/L.?CLAUDICATION(C):?denies, B/L.?REST PAIN:?denies, B/L.?PARESTHESIA(C):?absent, B/L.?BURNING(C):?absent, B/L.?Orthopedic: ?MUSCLE STRENGTH:?5/5 all groups in a symmetrical fashion, B/L.?Neurological: ?SENSORY:?Neurological exam reveals intact sensorium, pain sensation normal, vibration sensation intact, pinprick sensation is normal in the lower extremities, Pt denies, anesthesia, burning, paresthesia, tingling, B/L.? Assessment: * Assessment: 1.?Tinea unguium - B35.1???2 .?Pain in right toe(s) - M79.674???3.?Pain in left toe(s) - M79.675???4.?Left foot pain - M79.672???5.?Abscess of left foot - L02.612???Specify :Painful, Resistant to conservative treatment???6.?Plantar wart - B07.0 (Primary)???7.?Atherosclerosis of wiyot artery of both lower extremities, with unspecified presence of clinical manifestation - I70.203???Notes :Q7(A), Q8(2B), Q9(1B,2C)??? Plan: * Treatment: 2.?Abscess of left foot?Procedure: 97640 I&D ABSCESS- SIMPLE,SINGLE Notes: Patient Educated with: WOUND CARE INSTRUCTIONS.pdf (WOUND CARE INSTRUCTIONS.pdf)?? 3.?Atherosclerosis of wiyot artery of both lower extremities, with unspecified presence of clinical manifestation?Procedure: 32882-OZFK SKIN LESIONS, OVER 4 * Procedures:?Debride Nail 6-10:?Nail debridement?Performance of this nail treatment by a nonprofessional would put this patients foot and overall health at risk. Therefore, debridement to affected nail(s), as described in exam, was performed extensively to reduce/remove overall nail length, girth, thickness, subungual debris, and necrotic tissue, by manual and/or electrical means through the use of a nail nipper and/or dremel-type grinder operator external tool, to a more viable healthy nail plate or bed tissue 6-10 nails in total. Silver nitrate was used for any petechial bleeding as necessary. Definitive antifungal treatment options, both pharmaceutical and surgical, have been reviewed and discussed with the patient. The patient solely prefers the use of intermittent/as needed professional debridement services for their nail condition and understands the need for additional periodic treatments to maintain effectiveness in symptomatic relief - 92935.?Keratoma Treatment:?Parring or Cutting of Benign Hyperkeratotic Lesion(s)?..., (-57) More than 4 Lesions - The Benign hyperkeratotic lesions, ( 4 ) in total, locations as stated and described in exam, were pared, and/or cut utilizing a sterile 15 blade, tissue nippers, and/or power dremel instrumentation - 37725.?Wart Treatment:?Procedure?Verrucae were debrided to pin-point bleeding margins with sterile 15 surgical blade, silver nitrate chemocautery applied, recomm. immune-boosting meds such as zinc, recomm. follow up with topical chemosurgical agents, Pt STILL, defers any other forms of tx (98039).?I & D:?Procedure:?ABSCESS: Due to presence of unrelieved pain despite conservative measures taken, an Incision and Drainage was recommended. The area located as per exam was prepped with betadine/alcohol, The area was incised with use of sterile 15 blade or sterile tissue nipper. The wound, once opened, was drained of approximately ( 0.5 ) cc purulent fluid, and debrided of devitilized tissue using same instramentation. A dry sterile dressing with antibiotic ointment was applied. The patient tolerated the procedure well and related a decrease in symptoms upon discharge. Local wound care instructions were discussed and dispensed to the patient (69734).?Location?, T1.?Anesthesia?, was accomplished TOPICALLY with Lidocaine Hydrochloride Jelly 2 percent.? * Procedure Codes:?72296 DEBRI DE NAIL, 6 OR MORE, Modifiers: XS 29322 DRAINAGE OF SKIN ABSCESS, Modifiers: T1 96168 Wart Destruction, 1-14, Modifiers: XS 76531 TRIM SKIN LESIONS, OVER 4, Modifiers: Q8 * Follow Up:?2 Weeks * Images: * Sign off status: Completed true * Provider:Aniket Espinal DPM Date:?2023 Generated for Tejinder isabel/Mary/Jolynn on:?10/04/2024 11:20 AM EDT History and Physical Notes * HPI (History of Present Illness) Category Sub-Category Detail Notes Category Not es Painful Nails Pt States Last PCP Visit: Date:: 04/23/2024 At Risk footcare Pt States Last PCP Visit: Date: Possible Infection Treatments: soaks Examination Category Sub-Category Detail Notes Category Not es Ingrown Nail INSPECTION: Neurological SENSORY: Neurological exa m reveals intact sensorium, pain sensation normal, vibration sensation intact, pinprick sensation is normal in the lower extremities, Pt denies, anesthesia, burning, paresthesia, tingling, B/L Dermatologic SKIN FINDINGS: Skin shows sign( s) of, severely painful abscess of approximate size at ( 4 ) mm distal T1 , Skin exam reveals Keratotic lesion(s) located at, 1, 5, B/L, , Plantar Heel(s), B/L ULCER: VERRUCA: Reveals a Single , m ulti-loculated , mosaic-patterned, round, raised, flat-topped, petechial bleeding papule(s), with cauliflower appearance and interruption of skin lines, pain to lateral compression, and size estimated at 1mm diameter , plantar Midfoot , RIGHT Orthopedic MUSCLE STRENGTH: 5/5 all groups in a symm etrical fashion, B/L General Examination GENERAL APPEARANCE: Denies f ever, chills, malaise, lymphadenopathy , Reveals a pleasant, alert, well nourished, well-developed, well hydrated individual, who demonstrates proper attention to hygiene/body habitus, and is in no acute distress, Pt serves as own historian for office visit today ORIENTED: person, place, and t teo Vascular DP PULSES (B): , 1/4, B/L PT PULSES (B): 0/4, B/L CAPILLARY FILL TIME: delayed, all digits , B/L TEMPERTURE GRADIENT (C): decreased, cool to cool, proximal to distal, B/L TROPHIC CONDITION-TEXTURE/ELASTICITY/TURGOR/HAIR GROWTH (B): decreased, fragile, thin, shiny skin, wi th sparse to absent hair growth, B/L EDEMA (C): , 1/4, B/L CLAUDICATION (C): denies, B/L REST PAIN: denies, B/L PIGMENTATION: pale, B/L PARESTHESIA (C): absent, B/L BURNING (C): absent, B/L Nails NAILS are: Elongated, overg rown, dystrophic, lytic, greater than 3mm thick, discolored and friable with crumbly malodorous subungual debris, with pain on palpation , TA, , T2 , T3 , T4 , T5 , T6 , T7 , T8 , T9 ,
--- OUTSIDE RECORDS SUMMARY | 2024-10-04 11:20 | XMS_ITS ---
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 Role Phone Olena COULTER, Clive Primary Care Provider Sabraoswaldo humberto TeddyErin Unavailable [phone] Allergies No Known Allergies REASON FOR VISIT At Risk Footcare, Painful Nail(s) aggravated by shoes and causing difficulty standing/walking., Skin problem(s), Wart(s) Medications Medication SIG (Take, Route, Frequency, Duration) Notes Start Date End Date Status Atenolol 50 MG 1 tablet Orally Once a day for 30 day(s) Active Tums Active Multivitamin Active Naprosyn 375 MG 1 tablet Orally Twic e a day for 15 days 05/10/2014 Not-Taking Percocet 5-325 MG 1 tablet as needed O rally every 4-6 hrs for as needed 05/10/2014 Not-Taking Aspirin 81 MG 1 tablet [...] Twice a day for 30 days Active Social History Tobacco Use: Social History [...] Additional Findings: Tobacco non-user Current no nsmoker Vital Signs Height 5 ft 1 in in 07/27/2024 Weight 100 lbs 07/27/2024 BMI 18.89 kg/m2 07/27/2024 Blood pressure systolic 120 mm Hg 07/27/19 25 Blood pressure diastolic 67 mm Hg 025 Procedures Procedure Date Ordered Date Performed Result Body Sit e 85613-CVVILTU NAIL, 6 OR MORE 07/27/2024 N/A 76595-Mqca Destruction, 1-14 07/27/2024 N/A 04405-XFSR SKIN LESIONS, OVER 4 07/27/2024 N/A Encounters Encounter Location Date Provider Diagnosis [facility] [address] 07/27/2024 Erin Black Plantar wart B07.0 ; Atherosclerosis of [place] artery of both lower extremities, with unspecified presence of clinical manifestation I70.203 ; Tinea unguium B35.1 ; Pain in right toe(s) M79.674 ; Pain in left toe(s) M79.675 ; Left foot pain M79.672 and Xerosis of skin L85.3 Assessments Encounter Date Diagnosis (ICD Code) Assessment Notes Treatment Notes Treatment Clinical Notes Section Notes 07/27/2024 Plantar wart (ICD-10 - B07.0) 07/27/2024 Atherosclerosis of [place] artery of both lower extremities, with unspecified presence of clinical manifestation (ICD-10 - I70.203) Q7(A), Q8(2B), Q9(1B,2C) 07/27/2024 Tinea unguium (ICD-10 - B35.1) 07/27/2024 Pain in right toe(s) (ICD-10 - M79.674) 07/27/2024 Pain in left toe(s) (ICD-10 - M79.675) 07/27/2024 Left foot pain (ICD-10 - M79.672) 07/27/2024 Xerosis of skin (ICD-10 - L85.3) 07/27/2024 Other Plan Of Treatment Medication Medication Name Sig Start Date Stop Date Notes Ammonium Lactate 12 % 1 application Exte rnally to affected areas of dry skin to feet except for between the toes Twice a day for 30 days Pending Test Test Name Order Date 88775-BIIBPFS NAIL, 6 OR MORE 07/27/2024 01495-Ivhj Destruction, 1-14 07/27/2024 17237-MFHC SKIN LESIONS, OVER 4 07/27/19 25 Next Appt Details Follow Up: 3 Months, Reason: Provider Name:Erin Espinal , 10/29/2024 09:00:00 AM, [address] [facility], [place], [address], Procedure Notes * Category Sub-Category Detail Notes Wart Treatment Procedure Verruca, as desc ribed in exam, were debrided to pin-point bleeding margins with sterile 15 surgical blade, silver nitrate chemocautery applied, recomm. immune-boosting meds such as zinc, recomm. follow up with topical chemosurgical agents, Pt defers any other forms of tx - 47688 Debride Nail 6-10 Nail debridement Due to the cl inical pathology outlined in the exam findings, performance of this nail treatment is medically necessary as its management by an unskilled/untrained nonprofessional would put this patients foot and overall health at risk. Therefore, debridement to affected nail(s), as described in exam ( TA, T3 , T4 , T5 , T6 , T7 , T8 , T9 ), was performed exclusively by the physician of record to reduce/remove overall nail length, girth, thickness, subungual debris, and necrotic tissue, by manual and/or electrical means through the use of a nail nipper and/or dremel-type head bone grinder, to a more viable healthy nail plate [...] to maintain effectiveness in symptomatic relief - 75337 Keratoma Treatment Parring or Cutting o f Benign Hyperkeratotic Lesion(s) (-57) More than 4 Lesions - Due to the at risk nature of the patients medical condition as documented in the exam findings, performance of this keratoderma treatment is medically necessary as its management by an unskilled/untrained nonprofessional would put this patients foot and overall health at risk. Therefore, the benign hyperkeratotic lesions, ( 8 ) in total, locations as stated and described in the exam ( sub 1, 5, B/L, distal T1,T2, Plantar Heel(s), B/L), were pared, and/or cut utilizing a sterile 15 blade, tissue nippers, and/or power dremel instrumentation by the physician of record - 19086 Progress Notes * Bonny KEITH PDOB:1939 (84 yo F)Acc No.[id number]:07/27/2024 Progress Note Patient:?Bonny KEITH P Provider:?Erin Espinal DPM :1940???Age:84 Y???Sex:Female D ate:07/27/2024 Address:[address] [place] [id number] Pcp:Clive Hyatt MD Subjective: * Chief Complaints: * ???At Risk FootcarePainful N ail(s) aggravated by shoes and causing difficulty standing/walking.Skin problem(s)Wart(s) * HPI: ???At Risk footcare:?Pt States Last PCP Visit:?Date?04/23/2024 ???Painful Nails:?Pt States Last PCP Visit:?Date:?04/23/2024 ???Skin problems:?Nature:?dryness , scaling.?Location:?B/L .?Duration:?several days.?Course:?worse.? * ROS:?General/Constitutional:?Nausea?denies.?Vomiting?denies.?Hunger Thirst?denies.?Loss appetite?denies.?Chills?denies.?Fatigue?denies.?Fever?denies.?Night Sweats?denies.?Unexplained weight loss?denies.?Ophthalmologic:?Blurred vision?denies.?Red eye?denies.?HEENTM:?Dentures?denies.?Dizziness?denies.?Glasses/contacts?admits.?Retinopathy?de nies.?Blurred/double vision?denies.?TMJ?denies.?Discharge/drainage?denies.?Implants?denies.?Hard of hearing denies.?Difficulty chewing/swallowing/speaking?denies.?Nose bleeds?denies.?Sore mouth?denies.?Swollen glands?denies.?Respiratory:?On Oxygen?denies.?Pneumonia/pleurisy?denies.?Bronchitis?denies.?Emphysema?denies.?C oughing?denies.?Cough blood?denies.?Shortness of breath?denies.?Wheezing?denies.?Cardiovascular:?Pacemaker?denies.?MVP?denies.?WPW?denies.?CHF?denies.?Heart attack?denies.?Septal defect?denies.?Rapid beat?denies.?Chest pain ?denies.?Atrial Fib.?denies.?Murmur/Palpitations?denies.?Gastrointestinal:?Hemorrhoids?denies.?Stomach/Abdominal pain?denies.?Dark blood stool?denies.?Irritable bowel ?denies.?Constipation?denies.?Diarrhea?denies.?Vomiting?denies.?Hematology:?Swelling?denies.?Bruising?denies.?Bleeding problem?denies.?Genitourinary:?Blood urine?denies.?Frequent/Painfu/urination/bladder control?denies.?Kidney stones?denies.?Infection (UTI)?denies.?Nephropathy?denies.?Musculoskeletal:?Hammertoes?admits.?Bunions?denies.?Scoliosis/kyphosis?denies.?Muscle cramps / walking?denies.?Generalized aches and pains?denies.?Weakness?denies.?Integ.:?[place]?denies.?Scars?denies.?Corns/calluses?, admits.?Ingrown nails?denies.?Painful nails?admits.?Rashes?denies.?Neurologic:?Difficulty sleeping?denies.?Bipolar?denies.?Brain disorder?denies.?Balance trouble?denies.?Confusion?denies.?Fainting/blackouts?denies.?Headache?denies.?Tr emors?denies.? * Medical History:? 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 Pt denies family history. * Social History:?Tobacco Use:?Tobacco use other than smoking?Are you an other tobacco user??No ?Tobacco Control (Standard)?Tobacco use:?Nonsmoker ?Additional Findings: Tobacco non-user?Current nonsmoker ???Drugs/Alcohol:?Drugs?Have you used drugs other than those [...] 1 00, BMI: 18.89, Shoe size: 7, BP: 120/67 mm Hg, Wt- k.36 kg. * Examination: ???General Examination: ?GENERAL APPEARANCE:?Denies fever, chills, malaise, lymphadenopathy , Reveals a pleasant, alert, well nourished, well-developed, well hydrated individual, who demonstrates proper attention to hygiene/body habitus, and is in no acute distress, Pt serves as own historian for office visit today.?Nails: ?NAILS are:?Elongated, overgrown, dystrophic, lytic, greater than 3mm thick, discolored and friable with crumbly malodorous subungual debris, with pain on palpation , TA,?T3 , T4 , T5 , T6 , T7 , T8 , T9 ,.?Dermatologic: ?SKIN FINDINGS:??, Skin exam reveals Keratotic lesion(s) located at, sub?1, 5, B/L, distal T1,T2, Plantar Heel(s), B/L , Skin shows sign(s) of, dryness, scaling, in a stocking fashion, no fissure(s) present, B/L.?VERRUCA:?Reveals a Single , multi-loculated , mosaic-patterned, round, raised, flat-topped, petechial bleeding papule(s), with cauliflower appearance and interruption of skin lines, pain to lateral compression, and size estimated at 5mm diameter plantar Midfoot, left,with surrounding erythema (plantar Midfoot , RIGHT, NOW NO FURTHER SIGN of mosaic papule(s) with skin lines now evident and visible).?Vascular: ?DP PULSES (B):?, 06/12, B/L.?PT PULSES (B):? 0/4, B/L.?CAPILLARY FILL TIME:? delayed, all digits, B/L.?TROPHIC CONDITION-TEXTURE/ELASTICITY/TURGOR/HAIR GROWTH (B):? decreased, fragile, thin, shiny skin, with sparse to absent hair growth, B/L.?TEMPERTURE GRADIENT (C):? decreased, cool to cool, proximal to distal, B/L.?PIGMENTATION:?pale, B/L.?EDEMA (C):?, 06/12, B/L.?CLAUDICATION (C):?denies, B/L.?REST PAIN:?denies, B/L.?PARESTHESIA (C):?absent, B/L.?BURNING (C):?absent, B/L.?Neurological: ?SENSORY:?Neurological exam reveals intact sensorium, pain sensation normal, vibration sensation intact, pinprick sensation is normal in the lower extremities, Pt denies, anesthesia, burning, paresthesia, tingling, B/L.? Assessment: * Assessment: 1.?Plantar wart - B07.0???2. ?Atherosclerosis of [place] artery of both lower extremities, with unspecified presence of clinical manifestation - I70.203 (Primary)???Notes :Q7(A), Q8(2B), Q9(1B,2C)???3.?Tinea unguium - B35.1???4.?Pain in right toe(s) - M79.674???5.?Pain in left toe(s) - M79.675???6.?Left foot pain - M79.672???7.?Xerosis of skin - L85.3???Specify :Acute problem, Uncomplicated (3),Rx Management (4)??? Plan: * Treatment: 2.?Plantar wart?Procedure: 08201-Roxh Destruction, 1-14 3.?Tinea unguium?Procedure: 40430-HNDNCXG NAIL, 6 OR MORE 4.?Xerosis of skin? Start Ammonium Lactate Cream, 12 %, 1 application, Externally to affected areas of dry skin to feet except for between the toes, Twice a day, 30 days, 280, Refills 3.?? * Procedures:?Debride Nail 6-10:?Nail debridement?Due to the clinical pathology outlined in the exam findings, performance of this nail treatment is medically necessary as its management by an unskilled/untrained nonprofessional would put this patients foot and overall health at risk. Therefore, debridement to affected nail(s), as described in exam ( TA, T3 , T4 , T5 , T6 , T7 , T8 , T9 ), was performed exclusively by the physician of record to reduce/remove overall nail length, girth, thickness, subungual debris, and necrotic tissue, by manual and/or electrical means through the use of a nail nipper and/or dremel-type head bone grinder, to a more viable healthy nail plate or bed tissue 6- 10 nails in total. Silver nitrate was used for any petechial bleeding as necessary. Definitive antifungal treatment options, both pharmaceutical and surgical, have been reviewed and discussed with the patient. The patient solely prefers the use of intermittent/as needed professional debridement services for their nail condition and understands the need for additional periodic treatments to maintain effectiveness in symptomatic relief - 11888.?Keratoma Treatment:?Parring or Cutting of Benign Hyperkeratotic Lesion(s)?(-57) More than 4 Lesions - Due to the at risk nature of the patients medical condition as documented in the exam findings, performance of this keratoderma treatment is medically necessary as its management by an unskilled/untrained nonprofessional would put this patients foot and overall health at risk. Therefore, the benign hyperkeratotic lesions, ( 8 ) in total, locations as stated and described in the exam ( sub 1, 5, B/L, distal T1,T2, Plantar Heel(s), B/L), were pared, and/or cut utilizing a sterile 15 blade, tissue nippers, and/or power dremel instrumentation by the physician of record - 29688.?Wart Treatment:?Procedure?Verruca, as described in exam, were debrided to pin-point bleeding margins with sterile 15 surgical blade, silver nitrate chemocautery applied, recomm. immune-boosting meds such as zinc, recomm. follow up with topical chemosurgical agents, Pt defers any other forms of tx - 14177.? * Procedure Codes:?26935 DEBRI DE NAIL, 6 OR MORE, Modifiers: XS 14115 Wart Destruction, 1-14, Modifiers: XS 36756 TRIM SKIN LESIONS, OVER 4, Modifiers: Q8 * Preventive Medicine:? ??Counseling:?Discussion:?-13: Office or other outpatient visit for the evaluation and management of an established patient, which required a medically appropriate history and/or examination and LOW level of DECISION MAKING for: 1 STABLE ACUTE UNCOMPLICATED PROBLEM, 2 OR MORE MINOR PROBLEMS, OR 1 STABLE CHRONIC PROBLEM, THAT POSE(S) A LOW RISK FOR MORBIDITY/MORTALITY. The visit on the day of the encounter encompassed interpreting the data and educating the patient as to the nature of their condition, treatment options available according to their individual PMH, meds, allergies, and overall health/living conditions, as well as any potential risks or complications that may occur from a failure to adhere to, and participate in, the recommended course of therapy. The discussion included a complete verbal, and/or written explanation of the examination results, any x-rays taken, the proposed diagnosis, and outline of the treatment plan. A schedule for future care needs was also explained. The patient verbalized an understanding of the instructions at this time and agreed to be an active participant in their treatment. If the patient should think of any questions or concerns after the visit, I have encouraged the patient to call the office.?Xerosis:?The patient was counseled on the diagnosis, potential etiologies, and treatment options for their skin condition. We discussed the risks and benefits of each option from performing no treatment, to utilizing OTC topical skin creams/ointments, to utilizing prescription topical creams/ointments, to utilizing customized compounded topical medications and use of nocturnal occlusion with any/all previously detailed therapies. We discussed the advantages and disadvantages of each possible treatment and importance for adherence to all the recommended therapies for optimum success and avoid potential complications such as open sore/infection/possible hospitalization. We discussed the potential effectiveness of each topical preparation as well as each ones possible side effects and/or patient medication interactions. Patient questions re: use, dosage, successful outcomes, and application consistency were reviewed and the patient verbalized that all answers were clearly understood. The patient has decided to apply Rx skin creams to their feet save the interspaces while paying special attention to the heels. Such was sent to their pharmacy at the time of visit.? ??Screening/Special Tests:?Fall Risk?Screening:?No falls in the past year ?FALLS: Screening for Future Fall Risk?Have you had any falls with injury in the past year??No * Follow Up:?3 Months * Images: * Sign off status: Completed true * Provider:?Erin Espinal DPM Date:?2024 Generated for Tejinder isabel/Mary/Calebitting on:?10/04/2024 11:20 AM EDT History and Physical Notes * HPI (History of Present Illness) Category Sub-Category Detail Notes Category Not es Painful Nails Pt States Last PCP Visit: Date:: 04/23/2024 Skin problems Nature: dryness , scaling Location: B/L Duration: several days Course: worse At Risk footcare Pt States Last PCP Visit: Date: Examination Category Sub-Category Detail Notes Category Not es Ingrown Nail INSPECTION: Neurological SENSORY: Neurological exa m reveals intact sensorium, pain sensation normal, vibration sensation intact, pinprick sensation is normal in the lower extremities, Pt denies, anesthesia, burning, paresthesia, tingling, B/L Dermatologic SKIN FINDINGS: , Skin exam reve als Keratotic lesion(s) located at, sub 1, 5, B/L, distal T1,T2, Plantar Heel(s), B/L , Skin shows sign(s) of, dryness, scaling, in a stocking fashion, no fissure(s) present, B/L ULCER: VERRUCA: Reveals a Single , m ulti-loculated , mosaic-patterned, round, raised, flat-topped, petechial bleeding papule(s), with cauliflower appearance and interruption of skin lines, pain to lateral compression, and size estimated at 5mm diameter plantar Midfoot, left,with surrounding erythema (plantar Midfoot , RIGHT, NOW NO FURTHER SIGN of mosaic papule(s) with skin lines now evident and visible) General Examination GENERAL APPEARANCE: Denies f ever, chills, malaise, lymphadenopathy , Reveals a pleasant, alert, well nourished, well-developed, well hydrated individual, who demonstrates proper attention to hygiene/body habitus, and is in no acute distress, Pt serves as own historian for office visit today ORIENTED: Vascular DP PULSES (B): , 14, B/L PT PULSES (B): 0/4, B/L CAPILLARY FILL TIME: delayed, all digits , B/L TEMPERTURE GRADIENT (C): decreased, cool to cool, proximal to distal, B/L TROPHIC CONDITION-TEXTURE/ELASTICITY/TURGOR/HAIR GROWTH (B): decreased, fragile, thin, shiny skin, wi th sparse to absent hair growth, B/L EDEMA (C): , 1, B/L CLAUDICATION (C): denies, B/L REST PAIN: denies, B/L PIGMENTATION: pale, B/L PARESTHESIA (C): absent, B/L BURNING (C): absent, B/L Nails NAILS are: Elongated, overg rown, dystrophic, lytic, greater than 3mm thick, discolored and friable with crumbly malodorous subungual debris, with pain on palpation , TA, T3 , T4 , T5 , T6 , T7 , T8 , T9 ,
--- OUTSIDE RECORDS SUMMARY | 2024-10-04 11:20 | XMS_ITS ---
Author Organization [facility] Address [address] [place] [address] Care Team Providers [employer] In[employer] Name Role Phone Olena COULTER, Clive Primary Care Provider Mariumsarwat stanleymaury Espinal, Erin Unavailable [phone] Allergies No Known Allergies REASON FOR VISIT Painful nail(s) aggrevated by shoes causing difficulty standing/walking, Wart(s), Open sore - Toe Medications Medication SIG (Take, Route, Frequency, Duration) Notes Start Date End Date Status Tums Active Ammonium Lactate 12 % 1 application to a ffected area Externally to feet Twice a day for 30 days Active Aspirin 81 MG 1 tablet Orally Once a day for 30 day(s) daily Not-Taking Percocet 5-325 MG 1 tablet as needed O rally every 4-6 hrs for as needed 05/10/2014 Not-Taking Naprosyn 375 MG 1 tablet Orally Twic e a day for 15 days 05/10/2014 Not-Taking Atenolol 50 MG 1 tablet Orally Once a day for 30 day(s) Active Multivitamin Active Social History Tobacco Use: Social History [...] Are you an other tobacco user? No Vital Signs Height 5 ft 1 in in 02/03/2024 Weight 105 lbs 02/03/2024 BMI 19.84 kg/m2 02/03/2024 Procedures Procedure Date Ordered Date Performed Result Body Sit e 05149-VHFHILI NAIL, 6 OR MORE 02/03/2024 N/A 35608-Ejug Destruction, 1-14 02/03/2024 N/A 09852- Debride <25 sq cm 02/03/2024 N/A Encounters Encounter Location Date Provider Diagnosis [facility] [address] [address] 02/03/2024 Erin Teddy Tinea unguium B35.1 ; Pain in right toe(s) M79.674 ; Pain in left toe(s) M79.675 ; Left foot pain M79.672 ; Plantar wart B07.0 ; Skin ulcer of toe of left foot, limited to breakdown of skin L97.521 and Ingrown nail L60.0 Assessments Encounter Date Diagnosis (ICD Code) Assessment Notes Treatment Notes Treatment Clinical Notes Section Notes 02/03/2024 Tinea unguium (ICD-10 - B35.1) 02/03/2024 Pain in right toe(s) (ICD-10 - M79.674) 02/03/2024 Pain in left toe(s) (ICD-10 - M79.675) 02/03/2024 Left foot pain (ICD-10 - M79.672) 02/03/2024 Plantar wart (ICD-10 - B07.0) 02/03/2024 Skin ulcer of toe of left foot, limited to breakdown of skin (ICD-10 - L97.521) Response to treatment - Improvement Patient Educated with: WOUND CARE INSTRUCTIONS.p df (WOUND CARE INSTRUCTIONS.p df) 02/03/2024 Ingrown nail (ICD-10 - L60.0) Plan Of Treatment Treatment Notes Assessment Notes Skin ulcer of toe of left fo ot, limited to breakdown of skin Patient Educated with: WOUND CARE INSTRUCTIONS.pdf (WOUND CARE INSTRUCTIONS.pdf) Pending Test Test Name Order Date 31570-THVDBIH NAIL, 6 OR MORE 02/03/2024 53519-Eccx Destruction, 1-14 02/03/2024 31296- Debride <25 sq cm 02/03/2024 Next Appt Details Follow Up: 6 Weeks, Reason: Provider Name:Erin Espinal , 10/29/2024 09:00:00 AM, [address] [place] [address] Rd, [place], [address], Procedure Notes * Category Sub-Category Detail Notes Wart Treatment Procedure Verrucae were de brided to pin-point bleeding margins with sterile 15 surgical blade, silver nitrate chemocautery applied, recomm. immune-boosting meds such as zinc, recomm. follow up with topical chemosurgical agents, Pt defers any other forms of tx (97305) Debride Nail 6-10 Nail debridement Nail debridem ent performed extensively to reduce/remove overall nail length and girth, subungual debris, and necrotic tissue, by manual and electrical means with use of a nail nipper and/or dremel, to more viable healthy nail plate or bed tissue 6-10. Silver nitrate used for any petechial bleeding as necessary. Patient chooses, no pharmaceutical tx (93890) Debride skin< 25 sq cm Open wound Physician of record performed open wound selective debridement of first 25 sq cm or less, of devitilized necrotic/nonviable soft tissue, fibrin, and exudate extending from the epidermis through the dermis, utilizing sharp dissection with sterile 15 blade, and/or tissue nippers. Sterile antibiotic dressing applied, ANESTHESIA- was accomplished TOPICALLY with Lidocaine Hydrochloride Jelly 2 percent. Hemostasis was achieved through direct pressure. Post debridement measurements: 5 mm x 3mm x 2 mm. Character of the wound post debridement is stable (09626) Progress Notes * Bonny KEITH PDOB:1939 (83 yo F)Acc No.[id number]:02/03/2024 Progress Note Patient:?Bonny Keith P Provider:Aniket Espinal DPM :1940???Age:83 Y???Sex:Female D ate:02/03/2024 Address:[address] [place] [address] [id number] Pcp:Clive Hyatt MD Subjective: * Chief Complaints: * ???Painful nail(s) aggrevate d by shoes causing difficulty standing/walkingWart(s)Open sore - Toe * HPI: ???Painful Nails:?Pt States Last PCP Visit:?Date:?10/07/2023 * Medical History:? * Surgical History:?breast kellee deanna 2011HT/Tent right 4th 05/17/2014colonoscopy 2015[place] in head 11/21/2019 * Hospitalization/Major Diagno stic Procedure:?Admitted to [facility] x 2 days, complications with colonostomy [...] alcohol in the past year??No ?Points?0 ?Interpretation?Negative ???Miscellaneous:?no Caffeine. ?Children: yes. ?Exercise: yes, walking. ?Marital status: . ?Occupation: Retired. * Medications:?TakingAtenolol 50 MG Tablet 1 tablet Orally Once a dayMultivitamin Tums Ammonium Lactate 12 % Cream 1 application to affected area Externally to feet Twice a dayTaking Atenolol 50 MG Tablet 1 tablet Orally Once a dayTaking Multivitamin Taking Tums Taking Ammonium Lactate 12 % Cream 1 application to affected area Externally to feet Twice a dayNot-Taking/PRNAspirin 81 MG Tablet Chewable 1 tablet Orally Once a day, Notes: dailyPercocet 5-325 MG Tablet 1 tablet as needed Orally every 4-6 hrsNaprosyn 375 MG Tablet 1 tablet Orally Twice a dayMedication List reviewed and reconciled with the patientNot-Taking/PRN Aspirin 81 MG Tablet Chewable 1 tablet Orally Once a day, Notes: dailyNot-Taking/PRN Percocet 5-325 MG Tablet 1 tablet as needed Orally every 4-6 hrsNot-Taking/PRN Naprosyn 375 MG Tablet 1 tablet Orally Twice a dayMedication List reviewed and reconciled with the patient * Allergies:?N.K.D.A.yes[Aller gies Verified] Objective: * Vitals:?Ht: 5 ft 1 in, Wt: 1 05, BMI: 19.84, Shoe size: 7, Wt-k.63 kg. * Examination: ???Nails: ?NAILS are:?Elongated, overgrown, dystrophic, lytic, greater than 3mm thick, discolored and friable with crumbly malodorous subungual debris, with pain on palpation , TA, , T2 , T3 , T4 , T5 , T6 , T7 , T8 , T9.?Dermatologic: ?VERRUCA:?Reveals a Single , multi-loculated , mosaic-patterned, round, raised, flat-topped, petechial bleeding papule(s), with cauliflower appearance and interruption of skin lines, pain to lateral compression, and size estimated at 1-2mm diameter , plantar Midfoot , RIGHT.?ULCER:? LOCATION?Distal, ,T1, SIZE, 4mm X 4mm X 2mm, BASE, granular, RIM, hyperkeratotic, UNDERMINING, absent, TRACKING, Full thickness breakdown of skin, DRAINAGE, serosanguineous, mild, NECROTIC TISSUE, loosely-adherent, yellow slough, MALODOR, absent, CALOR, absent, ERYTHEMA, absent, PAIN ON PALPATION, present.? Assessment: * Assessment: 1.?Tinea unguium - B35.1?2.? Pain in right toe(s) - M79.674?3.?Pain in left toe(s) - M79.675?4.?Left foot pain - M79.672?5.?Plantar wart - B07.0 (Primary)?6.?Skin ulcer of toe of left foot, limited to breakdown of skin - L97.521, Response to treatment - Improvement?7.?Ingrown nail - L60.0? Plan: * Treatment: 2.?Tinea unguium?Procedure: 24981-GHBWIFF NAIL, 6 OR MORE 3.?Skin ulcer of toe of left foot, limited to breakdown of skin?Procedure: 73073- Debride <25 sq cm Notes: Patient Educated with: WOUND CARE INSTRUCTIONS.pdf (WOUND CARE INSTRUCTIONS.pdf)?? * Procedures:?Debride Nail 6-10:?Nail debridement?Nail debridement performed extensively to reduce/remove overall nail length and girth, subungual debris, and necrotic tissue, by manual and electrical means with use of a nail nipper and/or dremel, to more viable healthy nail plate or bed tissue 6-10. Silver nitrate used for any petechial bleeding as necessary. Patient chooses, no pharmaceutical tx (53215).?Debride skin< 25 sq cm:?Open wound?Physician of record performed open wound selective debridement of first 25 sq cm or less, of devitilized necrotic/nonviable soft tissue, fibrin, and exudate extending from the epidermis through the dermis, utilizing sharp dissection with sterile 15 blade, and/or tissue nippers. Sterile antibiotic dressing applied, ANESTHESIA- was accomplished TOPICALLY with Lidocaine Hydrochloride Jelly 2 percent. Hemostasis was achieved through direct pressure. Post debridement measurements: 5 mm x 3mm x 2 mm. Character of the wound post debridement is stable (66157).?Wart Treatment:?Procedure?Verrucae were debrided to pin-point bleeding margins with sterile 15 surgical blade, silver nitrate chemocautery applied, recomm. immune-boosting meds such as zinc, recomm. follow up with topical chemosurgical agents, Pt defers any other forms of tx (87784).? * Procedure Codes:?20955 DEBRI DE NAIL, 6 OR MORE, Modifiers: XS 03132 ACTIVE WOUND CARE/20 CM OR <, Modifiers: XS 67022 Wart Destruction, 1-14, Modifiers: XS * Follow Up:?6 Weeks * Images: * Sign off status: Completed true * Provider:Aniket Espinal DPM Date:?2023 Generated for Tejinder isabel/Mary/Calebitting on:?10/04/2024 11:19 AM EDT History and Physical Notes * HPI (History of Present Illness) Category Sub-Category Detail Notes Category Not es Painful Nails Pt States Last PCP Visit: Date:: 10/07/2023 Examination Category Sub-Category Detail Notes Category Not es Ingrown Nail INSPECTION: Dermatologic ULCER: LOCATION Distal, ,T1, SIZE, 4mm X 4mm X 2mm, BASE, granular, RIM, hyperkeratotic, UNDERMINING, absent, TRACKING, Full thickness breakdown of skin, DRAINAGE, serosanguineous, mild, NECROTIC TISSUE, loosely-adherent, yellow slough, MALODOR, absent, CALOR, absent, ERYTHEMA, absent, PAIN ON PALPATION, present VERRUCA: Reveals a Single , m ulti-loculated , mosaic-patterned, round, raised, flat-topped, petechial bleeding papule(s), with cauliflower appearance and interruption of skin lines, pain to lateral compression, and size estimated at 1-2mm diameter , plantar Midfoot , RIGHT Nails NAILS are: Elongated, overg rown, dystrophic, lytic, greater than 3mm thick, discolored and friable with crumbly malodorous subungual debris, with pain on palpation , TA, , T2 , T3 , T4 , T5 , T6 , T7 , T8 , T9
== END 2024-10-04 09:54 | disposition home or self-care (01) ==
LOC: HO.LNP 09:53
PROVIDERS: Visit Provider Internal Medicine
DX: Z00.00 Encounter for general adult medical examination without abnormal findings (principal); I10 Essential (primary) hypertension; D72.821 Monocytosis (symptomatic); R82.90 Unspecified abnormal findings in urine
CPT/HCPCS: 80053; 80061; 81001; 85025; 87086

== ENCOUNTER 2024-12-06 08:08 | Outpatient (AMB) | payer MEDICARE, SELFPAY ==
--- OUTSIDE RECORDS SUMMARY | 2024-12-06 08:14 | XMS_ITS | Patient Health Record ---
Author Organization [facility] Address [address] [facility] [place] [address] Care Team Providers Care Supervisor [employer] Name Role Phone Olena COULTER, Clive Primary Care Provider Sabraoswaldo Erin Wong Unavailable [phone] Allergies No Known Allergies Reason For Referral No Information Medications Medication SIG (Take, Route, Frequency, Duration) Notes Start Date End Date Status Aspirin 81 MG 1 tablet Orally Once a day; Duration: 30 day(s) daily Not-Arturo ing Percocet 5-325 MG 1 tablet as needed O rally every 4-6 hrs; Duration: as needed 05/10/2014 Not-Taking Tums Active Ammonium Lactate 12 % 1 application to a ffected area Externally to feet Twice a day; Duration: 30 days Active Atenolol 50 MG 1 tablet Orally Once a day; Duration: 30 day(s) Active Multivitamin Active Naprosyn 375 MG 1 tablet Orally Twic e a day; Duration: 15 days 05/10/2014 Not-Takin g Immunizations Vaccine Route Administration Date Status Comme nts COVID-19 Pfizer BioNTech Vaccine Unknown 03/28/2021 Administered 1st vaccine 07/14/20 2nd vaccine 08/04/20 Social History Tobacco Use: Social History Observation Description Date Details (start date - stop date) Never Smoker NA - NA Tobacco use other than smoking: Question Answer Notes Are you an other tobacco user? No Tobacco Control (Standard) Question Answer Notes Tobacco use: Nonsmoker Additional Findings: Tobacco non-user Current no nsmoker AUDIT-C (Standard) Question Answer Notes Did you have a drink containing alcohol in the p ast year? 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.521) Active confirmed Problem Bilateral atherosclerosis of arteries of lower limbs (disorder) ([id number] ) Atherosclerosis of nulato artery of both lower extremities, with unspecified presence of clinical manifestation (I70.203) Active confirmed Q7(A), Q8(2B), Q9(1B,2 C) Vital Signs Blood pressure diastolic 68 mm Hg 10/29/2024 Height 5 ft 1 in in 10/29/2024 Blood pressure systolic 120 mm Hg 10/29/2024 Weight 105 lbs 10/29/2024 BMI 19.84 kg/m2 10/29/2024 Procedures Procedure Date Ordered Date Performed Result Body Sit e 72070-WAGV SKIN LESIONS, OVER 4 10/29/2024 N/A 57395- Debride <25 sq cm 10/29/2024 N/A 99096-Izaw Destruction, 1-14 10/29/2024 N/A 09202-PSTUHAP NAIL, 6 OR MORE 10/29/2024 N/A 03801-BGCV SKIN LESIONS, OVER 4 07/27/2024 N/A 01755-Rvrb Destruction, 1-14 07/27/2024 N/A 82593-FWUOYBR NAIL, 6 OR MORE 07/27/2024 N/A 42730- Debride <25 sq cm 02/03/2024 N/A 97039-Rsxj Destruction, 1-14 02/03/2024 N/A 42471-OMZQSXI NAIL, 6 OR MORE 02/03/2024 N/A 72999-VLLB SKIN LESIONS, OVER 4 05/04/2024 N/A 75086 I&D ABSCESS- SIMPLE,SINGLE 05/04/2024 N/A 85287-Cwac Destruction, 1-14 05/04/2024 N/A 46110-OXBAEHU NAIL, 6 OR MORE 05/04/2024 N/A Encounters Encounter Location Date Provider Diagnosis [facility] [address] 02/03/2024 Erin Black Tinea unguium B35.1 ; Pain in right toe(s) M79.674 ; Pain in left toe(s) M79.675 ; Left foot pain M79.672 ; Plantar wart B07.0 ; Skin ulcer of toe of left foot, limited to breakdown of skin L97.521 and Ingrown nail L60.[address] [address] 05/04/2024 Erin Black Tinea unguium B35.1 ; Pain in right toe(s) M79.674 ; Pain in left toe(s) M79.675 ; Left foot pain M79.672 ; Plantar wart B07.0 ; Abscess of left foot L02.612 and Atherosclerosis of nulato artery of both lower extremities, with unspecified presence of clinical manifestation I70.[address] [address] 07/27/2024 Erin Black Plantar wart B07.0 ; Atherosclerosis of nulato artery of both lower extremities, with unspecified presence of clinical manifestation I70.203 ; Tinea unguium B35.1 ; Pain in right toe(s) M79.674 ; Pain in left toe(s) M79.675 ; Left foot pain M79.672 and Xerosis of skin L85.[address] [address] 10/29/2024 Erin Black Plantar wart B07.0 ; Atherosclerosis of nulato artery of both lower extremities, with unspecified presence of clinical manifestation I70.203 ; Tinea unguium B35.1 ; Pain in right toe(s) M79.674 ; Pain in left toe(s) M79.675 ; Left foot pain M79.672 ; Xerosis of skin L85.3 and Non-pressure chronic ulcer of other part of left foot limited to breakdown of skin L97.521 Assessments Encounter Date Diagnosis (ICD Code) Assessment Notes Treatment Notes Treatment Clinical Notes Section Notes 02/03/2024 Tinea unguium (ICD-10 - B35.1) 05/04/2024 Tinea unguium (ICD-10 - B35.1) 07/27/2024 Plantar wart (ICD-10 - B07.0) 07/27/2024 Atherosclerosis of nulato artery of both lower extremities, with unspecified presence of clinical manifestation (ICD-10 - I70.203) Q7(A), Q8(2B), Q9(1B,2C) 10/29/2024 Plantar wart (ICD-10 - B07.0) 10/29/2024 Tinea unguium (ICD-10 - B35.1) 07/27/2024 Tinea unguium (ICD-10 - B35.1) 05/04/2024 Pain in right toe(s) (ICD-10 - M79.674) 10/29/2024 Atherosclerosis of nulato artery of both lower extremities, with unspecified presence of clinical manifestation (ICD-10 - I70.203) Q7(A), Q8(2B), Q9(1B,2C) 02/03/2024 Pain in right toe(s) (ICD-10 - M79.674) 02/03/2024 Pain in left toe(s) (ICD-10 - M79.675) 05/04/2024 Pain in left toe(s) (ICD-10 - M79.675) 07/27/2024 Pain in right toe(s) (ICD-10 - M79.674) 10/29/2024 Pain in right toe(s) (ICD-10 - M79.674) 07/27/2024 Pain in left toe(s) (ICD-10 - M79.675) 05/04/2024 Left foot pain (ICD-10 - M79.672) 10/29/2024 Pain in left toe(s) (ICD-10 - M79.675) 02/03/2024 Left foot pain (ICD-10 - M79.672) 02/03/2024 Plantar wart (ICD-10 - B07.0) 10/29/2024 Left foot pain (ICD-10 - M79.672) 05/04/2024 Abscess of left foot (ICD-10 - L02.612) Patient Educated with: WOUND CARE INSTRUCTIONS. pdf (WOUND CARE INSTRUCTIONS. pdf) 05/04/2024 Plantar wart (ICD-10 - B07.0) 07/27/2024 Left foot pain (ICD-10 - M79.672) 10/29/2024 Xerosis of skin (ICD-10 - L85.3) 05/04/2024 Atherosclerosis of nulato artery of both lower extremities, with unspecified presence of clinical manifestation (ICD-10 - I70.203) Q7(A), Q8(2B), Q9(1B,2C) 07/27/2024 Xerosis of skin (ICD-10 - L85.3) 02/03/2024 Skin ulcer of toe of left foot, limited to breakdown of skin (ICD-10 - L97.521) Response to treatment - Improvement Patient Educated with: WOUND CARE INSTRUCTIONS. pdf (WOUND CARE INSTRUCTIONS. pdf) 02/03/2024 Ingrown nail (ICD-10 - L60.0) 10/29/2024 Non-pressure chronic ulcer of other part of left foot limited to breakdown of skin (ICD-10 - L97.521) 05/04/2024 Other 07/27/2024 Other Plan Of Treatment Pending Test Test Name Order Date X ray : Foot, right 2V 03/04/2012 72736-DWCGHIT NAIL, 6 OR MORE 06/10/2012 33657-TOGDNWG NAIL, 6 OR MORE 08/20/2012 71955-PZOXBQC NAIL, 6 OR MORE 11/04/2012 22380-SIMTFTN NAIL, 6 OR MORE 01/13/2013 15827-CONOWZW NAIL, 6 OR MORE 03/31/2013 50304-IVKCMWF NAIL, 6 OR MORE 06/23/2013 58557-JFESRVG NAIL, 6 OR MORE 09/03/2013 43465-EAHDRIE NAIL, 6 OR MORE 11/16/2013 99808-WXWLTHX NAIL, 6 OR MORE 02/22/2014 50770-QQQHKHM NAIL, 6 OR MORE 08/23/2014 87393-LDHCAMD NAIL, 6 OR MORE 01/31/2015 08307-XYAGYLY NAIL, 6 OR MORE 05/09/2015 58643-OAQLKBB NAIL, 6 OR MORE 08/08/2015 10124-MFMKDDZ NAIL, 6 OR MORE 11/14/2015 17752-OBCUOPS NAIL, 6 OR MORE 11/08/2014 65410-WOENJRH NAIL, 6 OR MORE 03/01/2016 43585-VXEMMWU NAIL, 6 OR MORE 05/10/2016 63792-CZQZQKM NAIL, 6 OR MORE 08/09/2016 35763-YDFMMRL NAIL, 6 OR MORE 11/08/2016 30921-ZISCZXA NAIL, 6 OR MORE 02/07/2017 11841-BTBMPUO NAIL, 6 OR MORE 05/09/2017 85901-WRHWIRV NAIL, 6 OR MORE 08/08/2017 40803-DDXRCTG NAIL, 6 OR MORE 11/07/2017 40891-RMMSCOM NAIL, 6 OR MORE 02/06/2018 72243-KIGDKRG NAIL, 6 OR MORE 05/15/2018 52153-NHVKHDD NAIL, 6 OR MORE 08/18/2018 87887-VKRZFOY NAIL, 6 OR MORE 11/20/2018 65121-WXLZMDK NAIL, 6 OR MORE 02/23/2019 96185-CZCTKWR NAIL, 6 OR MORE 05/24/2019 28029-CQRTAEX NAIL, 6 OR MORE 01/04/2020 19397-QDWTWMJ NAIL, 6 OR MORE 04/04/2020 21048-WFMVYKB NAIL, 6 OR MORE 07/04/2020 00344-DZHTLPX NAIL, 6 OR MORE 10/03/2020 13496-SCQQAHH NAIL, 6 OR MORE 01/02/2021 94907-VPGMZVK NAIL, 6 OR MORE 04/04/2021 22719-YZXSJNN NAIL, 6 OR MORE 07/17/2021 32504-QOVXDLF NAIL, 6 OR MORE 10/16/2021 71243-UCUFORH NAIL, 6 OR MORE 01/15/2022 05250-DUWIDUE NAIL, 6 OR MORE 04/23/2022 00082-DQAFAOO NAIL, 6 OR MORE 07/23/2022 99630-WRKLRRP NAIL, 6 OR MORE 10/22/2022 98995-YWJIYIV NAIL, 6 OR MORE 01/21/2023 40945-YFDXTRF NAIL, 6 OR MORE 04/22/2023 12525-JPRPSNJ NAIL, 6 OR MORE 08/13/2023 88798-GCVJNCJ NAIL, 6 OR MORE 11/04/2023 05608-XHQBVBO NAIL, 6 OR MORE 02/03/2024 27201-VGWPDRR NAIL, 6 OR MORE 05/04/2024 99896-BFCZPZF NAIL, 6 OR MORE 07/27/2024 08570-BYDHUST NAIL, 6 OR MORE 10/29/2024 86318-Sqhc Destruction, 06-2207/27/2024 71909-Nqfm Destruction, 06-2210/29/2024 10489-Plph Destruction, 06-2205/04/2024 15885-Bjbd Destruction, 06-2211/04/2023 68269-Nfav Destruction, 06-2202/03/2024 65638-Jjru Destruction, 06-2208/13/2023 01171-Wcvt Destruction, 06-2204/22/2023 85646-Zxuh Destruction, 06-2204/23/2022 75970-Gvos Destruction, 06-2207/23/2022 27205-Mgfd Destruction, 06-2201/15/2022 68453-Urvn Destruction, 06-2207/17/2021 42731-Fyuz Destruction, 06-2210/16/2021 65113-Eefx Destruction, 06-2204/04/2021 31841-Fflr Destruction, 06-2207/04/2020 82973-Acqu Destruction, 06-2201/02/2021 19005-Dzhd Destruction, 06-2210/03/2020 38516-Clmb Destruction, 06-2204/04/2020 19761-Jbjj Destruction, 06-2201/04/2020 71049-Lztb Destruction, 06-2205/24/2019 15704-Zsby Destruction, 06-2202/23/2019 99513-Wqrz Destruction, 06-2211/20/2018 29411-Imdd Destruction, 06-2211/08/2016 34209-Vgjz Destruction, 06-2208/18/2018 59816-Umpi Destruction, 06-2205/15/2018 67375-Tgcc Destruction, 06-2202/06/2018 48213-Twto Destruction, 06-2211/07/2017 72773-Gxpy Destruction, 06-2208/08/2017 03539-Ynhb Destruction, 06-2205/09/2017 66051-Fvek Destruction, 06-2202/07/2017 18787-Uhqp Destruction, 06-2208/09/2016 83641-Dmwf Destruction, 06-2205/10/2016 29405-Knnw Destruction, 06-2203/01/2016 41048-Tlpt Destruction, 1-14 11/08/2014 73067-Uqvb Destruction, 1-14 11/14/2015 74170-Niau Destruction, 1-14 08/08/2015 06625-Fguo Destruction, 1-14 08/23/2014 99015-Nhbykhqx Plate 11/16/2013 84231-Walstxyf Plate 08/23/2014 41180-Maihpxel Plate 02/22/2014 77790-Bbxkgrit Plate 01/13/2013 65361-Lfblktye Plate 08/18/2018 32725-Mydozbrn Plate 02/23/2019 56904-Sgvhwgll Plate 01/04/2020 96966-Bjenfnag Plate 04/04/2021 71040-Qsnbxfba Plate 07/17/2021 14524-Teztlyae Plate 01/15/2022 44169-Mvakxrdf Plate 11/04/2023 09310-Bhwiwsit Plate Each Additional 41673-Dpnrfzpr Plate Each Additional 24529-Jntxxvfn Plate Each Additional 27370- Debride <25 sq cm 04/07/2014 90106- Debride <25 sq cm 05/10/2014 48329- Debride <25 sq cm 05/20/2014 28231- Debride <25 sq cm 05/31/2014 31396- Debride <25 sq cm 06/14/2014 70388- Debride <25 sq cm 02/22/2014 58395- Debride <25 sq cm 11/16/2013 84948- Debride <25 sq cm 08/20/2012 73990- Debride <25 sq cm 06/10/2012 92105- Debride <25 sq cm 03/19/2012 50174- Debride <25 sq cm 09/03/2013 23708- Debride <25 sq cm 03/04/2012 30085- Debride <25 sq cm 07/27/2013 50353- Debride <25 sq cm 03/31/2013 45280- Debride <25 sq cm 11/14/2015 78204- Debride <25 sq cm 11/30/2015 00974- Debride <25 sq cm 03/01/2016 47430- Debride <25 sq cm 05/10/2016 35000- Debride <25 sq cm 08/09/2016 88709- Debride <25 sq cm 01/04/2020 86290- Debride <25 sq cm 05/24/2019 46443- Debride <25 sq cm 04/04/2020 58523- Debride <25 sq cm 07/04/2020 87237- Debride <25 sq cm 10/16/2021 86999- Debride <25 sq cm 01/15/2022 68538- Debride <25 sq cm 07/17/2021 92704- Debride <25 sq cm 01/02/2021 22418- Debride <25 sq cm 02/03/2024 89547- Debride <25 sq cm 10/29/2024 25930- Debride <25 sq cm 04/23/2022 49630- Debride <25 sq cm 07/23/2022 89802- Debride <25 sq cm 01/21/2023 81667- Debride <25 sq cm 11/04/2023 58685- Debride <25 sq cm 08/13/2023 49462-MXLHZZW SKIN/TISSUE 06/23/2013 62334 I&D ABSCESS- SIMPLE,SINGLE 024 49177-ZHUY SKIN LESIONS, OVER 4 07/27/19 25 23295-ABBZ SKIN LESIONS, OVER 4 10/30/19 25 98413-XQXQ SKIN LESIONS, OVER 4 05/04/20 24 Next Appt Details Provider Name:Erin Espinal , 01/21/2025 09:00:00 AM, [address] [facility], [place], [address], Insurance Providers Payer Name Payer Address Payer Phone Subscriber Number Group Number Insured Name Patient Relationship to Insured Coverage Start Date Coverage End Date [employer]age [facility] [address] [place] [address] [id number] Bonny Jackson Self - patient is the insured Medical (General) History Medical History History ICD Code cancer heart disease measles mumps chicken pox Phlebitis Hallux valgus (acquired), left foot M20. 12 Other hammer toe(s) (acquired), right fo ot M20.41 Other hammer toe(s) (acquired), left jm t M20.42 Hallux valgus (acquired), right foot M20 .11 Surgical History Surgery Date(Month/Year) breast surgery 2010 HT/Tent right 4th 05/17/2014 colonoscopy 2015 [place] in [place] 11/21/2019 Hospitalization History Reason Date(Month/Year) [facility] [place] 06/2021 Admitted to [facility] 2 days, 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
[2024-12-06 08:54] VITALS: BP 132/80; PULSE 78; TEMP 36.7; O2SAT 97; BMI 19.7
--- NOTE | 2024-12-06 08:54 | AM.OFFWIN_ITS ---
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 - The fall occurred on a hard kitchen fl oor, resulting in a backward landing. - She has a history of arthritis in her back and feet, which predisposes her to falls. - She sustained a skin abrasion on her l eft arm but no head injury. - Pain management with Tylenol was ineff ective. - She denies BENJAMIN, LOC, syncope, CP, SOB, dizziness, bruising, leg pain, abd pain, n/v/d. Physical Exam General: Cooperative, healthy appearing, comfortable, no acute distress and well developed Orientation: Patient oriented x3 Limitations: No limitations Neck: Normal visual inspection, full ROM Respiratory: Normal respiratory effort and able to speak in complete sentences. Skin: Abrasion noted on left forearm, open skin tear and no active bleeding. no rashes or other lesions noted. Neuro: Patient oriented x3, CN 2-12 intact, gait normal. Back/spine: No TTP of cervical, thoracic or lumbar spine, no step offs noted. No bruising or swelling noted. No TTP of the thoracic or lumbar paraspinous or paravertebral muscles bilaterally. No step offs noted. No SI joint tenderness noted. Negative SLR noted. Strength is 5/5 on the LE bilaterally. DTR are 1+ on the LE bilaterally. Ambulates with steady gait. Patient was informed and verbally consented to the use of an ambient scribe for clinic note documentation during this visit. [facility] Medical History Hx of breast cancer Mitral valve prolapse Surgical History History of lumpectomy of left breast H/O colonoscopy Social History Alcohol intake: never Patient Tobacco Use Status: Never used Tobacco Second Hand Smoke Exposure: No Review of Systems Const All systems reviewed & are unremarkable except as noted in HPI and below Physical Exam Vital Signs: Last Vital Signs Temp 98.1 F 12/06/24 08:54 Pulse 78 12/06/24 08:54 BP 132/80 12/06/24 08:54 Pulse Ox 97 12/06/24 08:54 BMI result Body Mass Index 19.7 Assessment & Plan Assessment & Plan (1) Fall: Code(s): W19.XXXA - Unspecified fall, initial encounter Qualifiers: Encounter type: initial encounter Qualified Code(s): W19.XXXA - Unspecified fall, initial encounter Plan Most likely contusion vs strain vs abrasion vs fracture? Plan - Pain management with topical and oral medications for a few days. - No imaging necessary as examination was unremarkable. - Ensure proper wound care and monitor for infection. - Bacitracin and bandaid applied to the wound. - Follow up with PCP if no better in a week Medications: New diclofenac sodium 3% 1 appl topical BID 100 grams 0RF naproxen 500 mg PO Q12H PRN 20 tabs 0RF pain 7 days Coding Level of Care Code Est Pt Level 4 (41390) Diagnoses Fall, initial encounter W19.XXXA Encounter type: initial encounter
== END 2024-12-06 09:27 | disposition home or self-care (01) ==
PROVIDERS: PCP Internal Medicine; Visit Provider Physician Assistant Medical
DX: M54.50 Low back pain, unspecified (principal); W19.XXXA Unspecified fall, initial encounter

== ENCOUNTER → 2024-12-06 08:08 | Outpatient (BNVA) | payer MEDICARE, SELFPAY | PROVIDERS: PCP Internal Medicine; Visit Provider Physician Assistant Medical | DX: S40.812A Abrasion of left upper arm, initial encounter (principal); M54.9 Dorsalgia, unspecified; W19.XXXA Unspecified fall, initial encounter; Y93.9 Activity, unspecified; Y92.9 Unspecified place or not applicable; Y99.9 Unspecified external cause status | CPT/HCPCS: 99212 ==